=== PATIENT | male | born 1955 | race Caucasian/White ===

== ENCOUNTER → 2017-08-30 | Outpatient (CLI) | payer OTHER | END | disposition home or self-care (01) | LOC: BARWHC3 13:50 | PROVIDERS: ATTEND Surgery | DX: Z53.9 Procedure and treatment not carried out, unspecified reason (principal) ==

== ENCOUNTER 2017-11-01 06:28 | Day surgery (SDC) | payer OTHER ==
[2017-10-26 16:10] VITALS: BMI 38.0
[~2017-11-01 06:28] MED LIST: LACTATED RINGERS 1,000 ML IV SCH; LIDOCAINE 1% 20 ML VIAL (10MG/ML) FOR IV START INTRADERMA PRN
[2017-11-01 06:52] VITALS: RESP 18; TEMP 98.2
[2017-11-01] MEDS ORDERED: LACTATED RINGERS 1,000 ML IV ONE ×2 (06:59)
[2017-11-01 07:00] LABS: Glucose,Whole Blood 111 mg/dL (75-99)
[2017-11-01] MEDS ORDERED: PROPOFOL 10 MG/ML 20 ML VIAL IV ONE (07:52)
--- NOTE | 2017-11-01 08:02 | P.GSHP ---
History of Present Illness H&P Date: 11/01/17 Chief Complaint: GERD This is a 62-year-old male who presents for EGD. Patient has issues with GERD. Past Medical History Past Medical History: Diabetes Mellitus, GERD/Reflux Additional Past Medical History / Comment(s): Type 2 DM, *patient frequently experiences a feeling like a lump in his esophagus after eating,freq cough, voice changes History of Any Multi-Drug Resistant Organisms: None Reported Past Surgical History: Bariatric Surgery, Cholecystectomy, Tonsillectomy Additional Past Surgical History / Comment(s): lap band placed 2012 Past Anesthesia/Blood Transfusion Reactions: No Reported Reaction Additional Past Anesthesia/Blood Transfusion Reaction / Comment(s): No blood transfusions to date Smoking Status: Former smoker - Past Family History Mother Family Medical History: No Reported History Medications and Allergies Home Medications Medication Instructions Recorded Confirmed Type Aspirin 81 mg PO DAILY 09/23/17 10/26/17 History Citalopram Hydrobromide [CeleXA] 40 mg PO QAM 09/23/17 10/26/17 History Fexofenadine HCl [Lori Allergy] 180 mg PO DAILY 09/23/17 10/26/17 History Lisinopril [Zestril] 2.5 mg PO QAM 09/23/17 10/26/17 History Multivitamin [Men's Multi-Vitamin] 1 each PO DAILY 09/23/17 10/26/17 History Omeprazole [PriLOSEC] 40 mg PO DAILY 09/23/17 10/26/17 History Simvastatin [Zocor] 40 mg PO HS 09/23/17 10/26/17 History metFORMIN HCL [Glucophage] 1,000 mg PO BID 09/23/17 10/26/17 History ALPRAZolam [Xanax] 0.25 mg PO BID 10/26/17 10/26/17 History Fluticasone Nasal [place] [Flonase 2 spr EA NOSTRIL DAILY PRN 10/26/17 10/26/17 History Nasal [place]] Ibuprofen [Motrin] 200 mg PO Q6HR PRN 10/26/17 10/26/17 History Allergies Allergy/AdvReac Type Severity Reaction Status Date / Time Penicillins Allergy Severe Anaphylaxis Verified 10/26/17 15:57 Sulfa (Sulfonamide Allergy Rash/Hives Verified 11/01/17 06:54 Antibiotics) Surgical - Exam Vital Signs Temp Pulse Resp BP Pulse Ox 98.2 F 67 18 155/79 98 11/01/17 06:50 11/01/17 06:50 11/01/17 06:50 11/01/17 06:50 11/01/17 06:50 Results - Labs Abnormal Lab Results - Last 24 Hours (Table) 11/01/17 Range/Units 06:57 POC Glucose (mg/dL) 111 H (75-99) mg/dL Assessment and Plan Assessment: GERD. We'll perform EGD.
--- NOTE | 2017-11-01 08:10 | P.OP ---
Date of Procedure: 11/01/17 Preoperative Diagnosis: GERD Postoperative Diagnosis: Antral gastritis Procedure(s) Performed: EGD Anesthesia: MAC Surgeon: Rome Walker Pathology: other (Antrum) Condition: stable Disposition: PACU Description of Procedure: The patient's placed on the endoscopy table in the lateral position. He received IV sedation. The gastroscope placed oropharynx passed in the esophagus and into the stomach. Scope was placed through the pylorus. The first second portion of the duodenum appeared normal. Scope was then brought back the antrum this was mildly inflamed. A biopsies performed. Scope was then retroflexed and the remainder of the stomach appeared normal. There is no evidence of inflammation and the remainder stomach. It appears patient a previous LAP-BAND device. The GE junction was at 40 cm. The distal esophagus appeared normal. The proximal esophagusAppeared Normal. Scope was withdrawn for patient.
[2017-11-01 08:38] VITALS: BP 151/79; PULSE 58
== END 2017-11-01 08:49 | disposition home or self-care (01) ==
LOC: ORWHC2ENDO 06:28
PROVIDERS: ATTEND Surgery
DX: K29.50 Unspecified chronic gastritis without bleeding (principal); K21.9 Gastro-esophageal reflux disease without esophagitis; E11.9 Type 2 diabetes mellitus without complications; I10 Essential (primary) hypertension; E78.5 Hyperlipidemia, unspecified; Z98.84 Bariatric surgery status; Z90.49 Acquired absence of other specified parts of digestive tract; Z79.84 Long term (current) use of oral hypoglycemic drugs; Z79.82 Long term (current) use of aspirin; Z79.51 Long term (current) use of inhaled steroids; Z79.899 Other long term (current) drug therapy; Z88.0 Allergy status to penicillin; Z88.2 Allergy status to sulfonamides; Z87.891 Personal history of nicotine dependence
CPT/HCPCS: 88305; 43239; J2704

== ENCOUNTER 2017-12-23 18:07 | Emergency (ER) | payer OTHER ==
[2017-12-23] MEDS ORDERED: MECLIZINE 12.5 MG TAB PO STA (18:30)
--- NOTE | 2017-12-23 18:37 | ED ---
Dizziness HPI - General Chief Complaint: Dizziness Stated Complaint: dizzy, nausea Time Seen by Provider: 12/23/17 18:23 Source: patient, RN notes reviewed Mode of arrival: wheelchair Limitations: no limitations - History of Present Illness Initial Comments: This is a 62-year-old male who presents to the emergency department with chief complaint of dizziness. Patient states one hour ago he was lying in bed and his called to him. He states that he went to get up out of bed and had sudden onset of dizziness. Patient thought that he had gotten up too quickly but then as he tried to walk he began stumbling. He states that he felt like the room was spinning and felt like he was going to pass out. He also reports feeling nauseous. He denies any headache, weakness or vision changes. He denies any recent illnesses or infections. He denies chest pain or shortness of breath, abdominal pain. Patient states that he continues to feel dizzy. Symptoms are relieved by lying flat and worsened by sitting forward, standing up and making quick movements of the head. - Related Data Home Medications Medication Instructions Recorded Confirmed Citalopram Hydrobromide [CeleXA] 40 mg PO DAILY 09/23/17 12/23/17 Fexofenadine HCl [Lori Allergy] 180 mg PO DAILY 09/23/17 12/23/17 Lisinopril [Zestril] 2.5 mg PO DAILY 09/23/17 12/23/17 Multivitamin [Men's Multi-Vitamin] 1 tab PO DAILY 09/23/17 12/23/17 Omeprazole [PriLOSEC] 40 mg PO DAILY 09/23/17 12/23/17 Simvastatin [Zocor] 40 mg PO HS 09/23/17 12/23/17 metFORMIN HCL [Glucophage] 1,000 mg PO BID 09/23/17 12/23/17 ALPRAZolam [Xanax] 0.25 mg PO BID 10/26/17 12/23/17 Fluticasone Nasal [place] [Flonase 2 spr EA NOSTRIL DAILY PRN 10/26/17 12/23/17 Nasal [place]] Aspirin EC [Ecotrin Low Dose] 81 mg PO DAILY 12/23/17 12/23/17 Montelukast [Singulair] 10 mg PO DAILY 12/23/17 12/23/17 glipiZIDE [Glucotrol] 10 mg PO AC-BID 12/23/17 12/23/17 Previous Rx's Medication Instructions Recorded Meclizine [Antivert] 25 mg PO BID PRN #20 tab 12/23/17 Allergies Allergy/AdvReac Type Severity Reaction Status Date / Time Penicillins Allergy Severe Anaphylaxis Verified 12/23/17 18:44 Sulfa (Sulfonamide Allergy Rash/Hives Verified 12/23/17 18:44 Antibiotics) Review of Systems ROS Statement: Those systems with pertinent positive or pertinent negative responses have been documented in the HPI. ROS Other: All systems not noted in ROS Statement are negative. Past Medical History Past Medical History: Diabetes Mellitus, GERD/Reflux Additional Past Medical History / Comment(s): Type 2 DM, *patient frequently experiences a feeling like a lump in his esophagus after eating,freq cough, voice changes History of Any Multi-Drug Resistant Organisms: None Reported Past Surgical History: Bariatric Surgery, Cholecystectomy, Tonsillectomy Additional Past Surgical History / Comment(s): lap band placed 2012 Past Anesthesia/Blood Transfusion Reactions: No Reported Reaction Additional Past Anesthesia/Blood Transfusion Reaction / Comment(s): No blood transfusions to date Past Psychological History: Depression Smoking Status: Former smoker Past Alcohol Use History: None Reported Past Drug Use History: None Reported - Past Family History Mother Family Medical History: No Reported History General Exam - General Exam Comments Initial Comments: General: Awake and alert, well-developed; in no apparent distress. HEENT: Head atraumatic, normocephalic. Pupils are equal, round and reactive to light. Extraocular movements intact. No nystagmus noted. Oropharynx moist without erythema or exudate. Bilateral TMs pearly without effusion. Neck: Supple. Normal ROM. Cardiovascular: Regular rate and rhythm. No murmurs, rubs or gallops. Chest symmetrical. Respiratory: Lungs clear to auscultation bilaterally. No wheezes, rales or rhonchi. Normal respiratory effort with no use of accessory muscles. Abdomen: Soft, non-tender, non-distended. No rigidity, rebound or guarding. Musculoskeletal: Normal ROM, no tenderness, strength 5/5 bilateral upper and lower extremities. Skin: [place], warm and dry without rashes or lesions. Neurological: Alert and oriented x3. CN II-XII grossly intact. Speech is fluent and answers are appropriate. No focal neuro deficits. Heel to alanis testing normal. Psychiatric: Normal mood and affect. No overt signs of depression or anxiety noted. Limitations: no limitations Course Vital Signs 12/23/17 12/23/17 12/23/17 18:08 20:06 20:21 Temperature 98.0 F 97 F L Pulse Rate 67 64 Pulse Rate [ 64 Pulse Oximetery ] Respiratory 20 16 Rate Blood Pressure 146/72 158/73 Blood Pressure 147/74 [Right Arm Sitting] Blood Pressure 154/77 [Right Arm Standing] Blood Pressure 147/79 [Right Arm Supine] O2 Sat by Pulse 99 97 Oximetry EKG Findings - EKG Comments: EKG Findings:: 19:00:30. Normal sinus rhythm. Normal ECG. Ventricular rate 66 bpm, [place] interval 206, QRS duration 78, QT/QTC 396/415 Medical Decision Making - Medical Decision Making This is a 62-year-old male who presents to the emergency department with chief complaint of dizziness. Patient reports sudden onset of dizziness and feeling like the room is spinning. Symptoms made worse with quick movements of the head and relieved with closing eyes and remaining still. No focal neuro deficits on exam. Computed tomography scan of the brain is obtained which revealed no acute abnormalities. CBC and CMP are unremarkable. Patient was given Antivert in the emergency department and he states that his symptoms have improved. Patient is likely suffering from vertigo. He will be started on Antivert. Vital signs are stable and he is in no acute distress. He will be discharged home at this time. He is in agreement and voices understanding. All questions were answered. - Lab Data Result diagrams: 12/23/17 18:54 12/23/17 18:54 Lab Results 12/23/17 12/23/17 12/23/17 Range/Units 18:54 18:54 18:54 WBC 4.7 (3.8-10.6) k/uL RBC 4.21 L (4.30-5.90) m/uL Hgb 12.3 L (13.0-17.5) gm/dL Hct 36.2 L (39.0-53.0) % MCV 86.0 (80.0-100.0) fL MCH 29.2 (25.0-35.0) pg MCHC 34.0 (31.0-37.0) g/dL RDW 13.5 (11.5-15.5) % Plt Count 167 (150-450) k/uL Neutrophils % 53 % Lymphocytes % 29 % Monocytes % 8 % Eosinophils % 7 % Basophils % 1 % Neutrophils # 2.5 (1.3-7.7) k/uL Lymphocytes # 1.3 (1.0-4.8) k/uL Monocytes # 0.4 (0-1.0) k/uL Eosinophils # 0.3 (0-0.7) k/uL Basophils # 0.0 (0-0.2) k/uL Sodium 138 (137-145) mmol/L Potassium 4.5 (3.5-5.1) mmol/L Chloride 104 (98-107) mmol/L Carbon Dioxide 28 (22-30) mmol/L Anion Gap 6 mmol/L BUN 17 (9-20) mg/dL Creatinine 0.84 (0.66-1.25) mg/dL Est GFR (CKD-EPI)AfAm >90 (>60 ml/min/1.73 sqM) Est GFR (CKD-EPI)NonAf >90 (>60 ml/min/1.73 sqM) Glucose 241 H (74-99) mg/dL Calcium 8.7 (8.4-10.2) mg/dL Total Bilirubin 0.5 (0.2-1.3) mg/dL AST 27 (17-59) U/L ALT 26 (21-72) U/L Alkaline Phosphatase 39 (38-126) U/L Troponin I <0.012 (0.000-0.034) ng/mL Total Protein 5.7 L (6.3-8.2) g/dL Albumin 3.3 L (3.5-5.0) g/dL - Radiology Data Radiology results: report reviewed CT brain without contrast impression: Mild atrophy. No acute intracranial abnormality. Mild sinusitis. Disposition Clinical Impression: Vertigo Disposition: HOME SELF-CARE Condition: Good Instructions: Vertigo (ED), Dizziness (ED) Additional Instructions: Please take medications as prescribed. Please follow up with primary care provider within 1-2 days. Return to emergency department if symptoms should worsen or any concerns arise. Prescriptions: Meclizine [Antivert] 25 mg PO BID PRN #20 tab PRN Reason: Vertigo Is patient prescribed a controlled substance at d/c from ED?: No Referrals: Eric Muñiz MD [Primary Care Provider] - 1-2 days Time of Disposition: 20:50
[2017-12-23 19:32] LABS: Basophils % (A) 1 %; Eosinophils # (A) 0.3 k/uL (0-0.7); Eosinophils % (A) 7 %; HCT 36.2 % (39.0-53.0); HGB 12.3 gm/dL (13.0-17.5); Lymphocytes # (A) 1.3 k/uL (1.0-4.8); Lymphocytes % (A) 29 %; MCH 29.2 pg (25.0-35.0); Monocytes # (A) 0.4 k/uL (0-1.0); Monocytes % (A) 8 %; Neutrophils # (A) 2.5 k/uL (1.3-7.7); Neutrophils % (A) 53 %; Platelet Count 167 k/uL (150-450); RBC 4.21 m/uL (4.30-5.90); RDW 13.5 % (11.5-15.5); WBC 4.7 k/uL (3.8-10.6)
--- NOTE | 2017-12-23 19:32 | CT ---
EXAMINATION TYPE: CT brain wo con DATE OF EXAM: 12/23/2017 COMPARISON: None HISTORY: Dizziness. CT DLP: 1070.8 mGycm Automated exposure control for dose reduction was used. FINDINGS: Ventricles of normal size. There is no mass effect nor midline shift. There is no sign of intracrania l hemorrhage. The calvarium is intact. There is mucosal thickening in the ethmoid air cells. IMPRESSION: MILD ATROPHY. NO ACUTE INTRACRANIAL ABNORMALITY. MILD SINUSITIS.
[2017-12-23 19:50] LABS: ALT 26 U/L (21-72); AST 27 U/L (17-59); Albumin 3.3 g/dL (3.5-5.0); Alkaline Phosphatase 39 U/L (38-126); Anion Gap 6 mmol/L; Blood Urea Nitrogen 17 mg/dL (9-20); Calcium 8.7 mg/dL (8.4-10.2); Carbon Dioxide 28 mmol/L (22-30); Chloride 104 mmol/L (98-107); Glucose 241 mg/dL (74-99); Potassium 4.5 mmol/L (3.5-5.1); Sodium 138 mmol/L (137-145); Total Bilirubin 0.5 mg/dL (0.2-1.3); Total Protein 5.7 g/dL (6.3-8.2)
[2017-12-23 20:21] VITALS: PULSE 64; RESP 16; TEMP 97
[2017-12-23 20:23] VITALS: BP 147/79
== END 2017-12-23 21:04 | disposition home or self-care (01) ==
LOC: EC 18:07
DX: R42 Dizziness and giddiness (principal); R11.0 Nausea; E11.9 Type 2 diabetes mellitus without complications; K21.9 Gastro-esophageal reflux disease without esophagitis; F32.9 Major depressive disorder, single episode, unspecified; Z87.891 Personal history of nicotine dependence; Z79.82 Long term (current) use of aspirin; Z79.84 Long term (current) use of oral hypoglycemic drugs; Z79.899 Other long term (current) drug therapy; Z88.0 Allergy status to penicillin; Z88.2 Allergy status to sulfonamides
CPT/HCPCS: 36415; 70450; 80053; 84484; 85025; 93005; 99284

== ENCOUNTER 2018-11-20 06:24 | Emergency (ER) | payer OTHER ==
[2018-11-20 06:39] VITALS: BP 145/79; PULSE 74; RESP 17; TEMP 98.4
[2018-11-20] MEDS ORDERED: methylPREDNISolone SOD SUCCI 125 MG/2 ML VIAL IM ONE (07:01)
[2018-11-20] MEDS ORDERED: KETOROLAC 60 MG/2 ML VIAL IM STA (07:01)
[2018-11-20] MEDS ORDERED: ORPHENADRINE 30 MG/ML 2 ML VIAL IM STA (07:01)
[2018-11-20] MEDS ORDERED: ACET/COD 300 MG/30 MG STARTER PACK 6 TAB BTL PO STA (07:02)
--- NOTE | 2018-11-20 07:06 | ED ---
Back Pain HPI - General Chief Complaint: Back Pain/Injury Stated Complaint: Back pain- WC Time Seen by Provider: 11/20/18 06:46 Source: patient, RN notes reviewed, old records reviewed Limitations: no limitations - History of Present Illness Initial Comments: This patient's a 63-year-old male presents emergency department today for evaluation with complaints of lower back pain with radiation down the left leg. Patient reports that on the Patient was lifting pop bottles and crates and he felt a "pop in his back". Patient reports onset times having the numbness to the left leg as well as pain worse with certain movements. Patient reports that he's had a history of sciatic problems in the past but not quite some time. Patient states that his ever had any known back injuries. Patient reports that he has been taking Motrin for pain.Patient denies any recent fever, chills, shortness of breath, chest pain, abdominal pain, nausea vomiting, numbness or tingling, dysuria or hematuria, constipation or diarrhea, headaches or visual changes, or any other current symptoms - Related Data Home Medications Medication Instructions Recorded Confirmed Citalopram Hydrobromide [CeleXA] 40 mg PO DAILY 09/23/17 11/20/18 Fexofenadine HCl [[place] Allergy] 180 mg PO DAILY 09/23/17 11/20/18 Lisinopril [Zestril] 2.5 mg PO DAILY 09/23/17 11/20/18 Multivitamin [Men's Multi-Vitamin] 1 tab PO DAILY 09/23/17 11/20/18 Omeprazole [PriLOSEC] 40 mg PO DAILY 09/23/17 11/20/18 Simvastatin [Zocor] 40 mg PO HS 09/23/17 11/20/18 metFORMIN HCL [Glucophage] 1,000 mg PO BID 09/23/17 11/20/18 ALPRAZolam [Xanax] 0.25 mg PO BID 10/26/17 11/20/18 Fluticasone Nasal [place] [Flonase 2 spr EA NOSTRIL DAILY PRN 10/26/17 11/20/18 Nasal [place]] Aspirin EC [Ecotrin Low Dose] 81 mg PO DAILY 12/23/17 11/20/18 Montelukast [Singulair] 10 mg PO DAILY 12/23/17 11/20/18 glipiZIDE [Glucotrol] 10 mg PO AC-BID 12/23/17 11/20/18 Previous Rx's Medication Instructions Recorded Meclizine [Antivert] 25 mg PO BID PRN #20 tab 12/23/17 Cyclobenzaprine [Flexeril] 10 mg PO TID #12 tab 11/20/18 Dexamethasone 0.75 mg PO DAILY #12 tab 11/20/18 traMADol HCl [Ultram] 50 mg PO Q6HR PRN 3 Days #12 tab 11/20/18 Allergies Allergy/AdvReac Type Severity Reaction Status Date / Time Penicillins Allergy Severe Anaphylaxis Verified 11/20/18 08:01 Sulfa (Sulfonamide Allergy Rash/Hives Verified 11/20/18 08:01 Antibiotics) Review of Systems ROS Statement: Those systems with pertinent positive or pertinent negative responses have been documented in the HPI. ROS Other: All systems not noted in ROS Statement are negative. Past Medical History Past Medical History: Diabetes Mellitus, GERD/Reflux Additional Past Medical History / Comment(s): Type 2 DM, *patient frequently experiences a feeling like a lump in his esophagus after eating,freq cough,voice changes, History of Any Multi-Drug Resistant Organisms: None Reported Past Surgical History: Bariatric Surgery, Cholecystectomy, Tonsillectomy Additional Past Surgical History / Comment(s): lap band placed 2012, Past Anesthesia/Blood Transfusion Reactions: No Reported Reaction Additional Past Anesthesia/Blood Transfusion Reaction / Comment(s): No blood transfusions to date Past Psychological History: Depression Smoking Status: Former smoker Past Alcohol Use History: None Reported Past Drug Use History: None Reported - Past Family History Mother Family Medical History: No Reported History General Exam - General Exam Comments Initial Comments: This is a 63-year-old male. Alert and oriented 3. Patient appears in no acute distress. Limitations: no limitations General appearance: alert, in no apparent distress Head exam: Present: atraumatic, normocephalic, normal inspection Eye exam: Present: normal appearance, PERRL, EOMI. Absent: scleral icterus, conjunctival injection, periorbital swelling ENT exam: Present: normal exam, mucous membranes moist Neck exam: Present: normal inspection. Absent: tenderness, meningismus, lymphadenopathy Respiratory exam: Present: normal lung sounds bilaterally. Absent: respiratory distress, wheezes, rales, rhonchi, stridor Cardiovascular Exam: Present: regular rate, normal rhythm, normal heart sounds. Absent: systolic murmur, diastolic murmur, rubs, gallop, clicks GI/Abdominal exam: Present: soft, normal bowel sounds. Absent: distended, tenderness, guarding, rebound, rigid Extremities exam: Present: normal inspection, full ROM, normal capillary refill, other (Patient has tenderness over the left sciatic notch. Dorsalis pulse and posterior tibial pulses are 2+ bilaterally.). Absent: tenderness, pedal edema, joint swelling, calf tenderness Back exam: Present: normal inspection, vertebral tenderness (lumbar) Expanded Back exam: Sciatic Notch Tenderness: Left, Positive Straight Leg Raise: Left Neurological exam: Present: alert, oriented X3, CN II-XII intact Psychiatric exam: Present: normal affect, normal mood Skin exam: Present: warm, dry, intact, normal color. Absent: rash Course Vital Signs 11/20/18 06:36 Temperature 98.4 F Pulse Rate 74 Respiratory 17 Rate Blood Pressure 145/79 O2 Sat by Pulse 99 Oximetry Medical Decision Making - Medical Decision Making 63-year-old male presents with lumbar back pain and radiation down the left leg. Symptoms started while he was lifting a carton of soda at work. Patient reports he felt a pop in his back. Time Patient was given IM medications, Solu- Medrol, Norflex and Toradol. X-rays reviewed negative for any acute process. No signs of fracture. I discussed with Patient they should alternate between heat and ice for his back. . At this time patient's pain is improved. His gastric return parameters and appropriate follow-up with primary care physician KARIE and possible orthostatic specialist. - Radiology Data Radiology results: report reviewed Lumbar spine shows satisfactory alignment evidence of acute fracture dislocation seen. Vertebral body height remain normal. Moderate multilevel disc space narrowing and multilevel anterior and lateral [place] redemonstrated. Multilevel spinous process hypertrophy is seen. No significant change from 2012 study. Disposition Clinical Impression: Sciatica Disposition: HOME SELF-CARE Condition: Good Instructions (If sedation given, give patient instructions): Acute Low Back Pain (ED), Sciatica (ED) Additional Instructions: Patient advised to follow-up with primary care physician. Take medications as prescribed. Return to emergency department if any alarming signs or symptoms occur. Patient is advised to alternate between heat and ice to the lower back. Prescriptions: Dexamethasone 0.75 mg PO DAILY #12 tab Cyclobenzaprine [Flexeril] 10 mg PO TID #12 tab traMADol HCl [Ultram] 50 mg PO Q6HR PRN 3 Days #12 tab PRN Reason: Pain Is patient prescribed a controlled substance at d/c from ED?: No Referrals: Eric Muñiz MD [Primary Care Provider] - 1-2 days Time of Disposition: 08:28
--- NOTE | 2018-11-20 08:19 | XR ---
EXAMINATION TYPE: XR lumbar spine 2 or 3V DATE OF EXAM: 11/20/2018 CLINICAL HISTORY: Back pain since Wednesday. TECHNIQUE: Frontal and lateral images of the lumbar spine are obtained. COMPARISON: Prior x-ray May 21, 2011 FINDINGS: There are 5 lumbar type vertebral bodies redemonstrated. The lumbar spine shows satisfact ory alignment without evidence of acute fracture or dislocation. Vertebral body heights remain within normal limits. [id number] multilevel disc space narrowing with mild to moderate multilevel ant erior and lateral spurring is redemonstrated. Multilevel spinous process hypertrophy is seen. There i s partial visualization of lap band similar to prior. IMPRESSION: As above. No significant change from 2012 study.
== END 2018-11-20 08:55 | disposition home or self-care (01) ==
LOC: EC 06:24
DX: M54.42 Lumbago with sciatica, left side (principal); E11.9 Type 2 diabetes mellitus without complications; K21.9 Gastro-esophageal reflux disease without esophagitis; F32.9 Major depressive disorder, single episode, unspecified; Z79.82 Long term (current) use of aspirin; Z79.84 Long term (current) use of oral hypoglycemic drugs; Z79.899 Other long term (current) drug therapy; Z88.0 Allergy status to penicillin; Z88.2 Allergy status to sulfonamides; Z98.84 Bariatric surgery status
CPT/HCPCS: 72100; 99284; 96372 ×3; J2360; J2930; J1885

== ENCOUNTER 2020-01-03 09:39 | Emergency (ER) | payer OTHER, MEDICARE ==
[2020-01-03] MEDS ORDERED: PANTOPRAZOLE 40 MG/10 ML VIAL IVP STA (10:06)
[2020-01-03] MEDS ORDERED: SODIUM CHLORIDE 0.9% 1,000 ML IV STA (10:06)
[2020-01-03] MEDS ORDERED: ONDANSETRON 4 MG/2 ML VIAL IVP STA (10:06)
[2020-01-03 10:54] LABS: Basophils # (A) 0.1 k/uL (0-0.2); Basophils % (A) 1 %; Eosinophils # (A) 0.3 k/uL (0-0.7); Eosinophils % (A) 5 %; HCT 37.4 % (39.0-53.0); HGB 12.8 gm/dL (13.0-17.5); Lymphocytes % (A) 31 %; MCH 28.4 pg (25.0-35.0); MCHC 34.3 g/dL (31.0-37.0); MCV 82.8 fL (80.0-100.0); Mean Platelet Volume 8.1; Monocytes # (A) 0.5 k/uL (0-1.0); Monocytes % (A) 7 %; Neutrophils # (A) 3.3 k/uL (1.3-7.7); Neutrophils % (A) 52 %; Platelet Count 210 k/uL (150-450); RBC 4.51 m/uL (4.30-5.90); RDW 14.8 % (11.5-15.5); WBC 6.3 k/uL (3.8-10.6)
[2020-01-03 10:57] LABS: Appearance,Urine Clear (Clear); Bilirubin,Urine Negative (Negative); Blood,Urine Negative (Negative); Color,Urine Yellow; Glucose,Urine (UA) Negative (Negative); Ketones,Urine Trace (Negative); Leukocyte Esterase,Urine Negative (Negative); Nitrite,Urine Negative (Negative); Protein,Urine Negative (Negative); Specific Gravity,Urine 1.024 (1.001-1.035)
[2020-01-03 11:13] LABS: Albumin 4.2 g/dL (3.5-5.0); Calcium 9.2 mg/dL (8.4-10.2); Potassium 4.5 mmol/L (3.5-5.1); Total Bilirubin 0.7 mg/dL (0.2-1.3); Total Protein 6.7 g/dL (6.3-8.2)
[2020-01-03] MEDS ORDERED: MAG HYDROX/AL HYDROX/SIMETH 30 ML, HYOSCYAMINE ELIXIR 10 ML, LIDOCAINE VISCOUS 2% 10 ML PO STA ×3 (11:54)
--- NOTE | 2020-01-03 12:03 | ED ---
Abdominal Pain HPI <David Eden - Last Filed: 01/03/20 13:24> - General Source: patient, family Mode of arrival: ambulatory Limitations: no limitations <Vince Leahy - Last Filed: 01/03/20 13:52> - General Chief Complaint: Abdominal Pain Stated Complaint: trouble swallowing Time Seen by Provider: 01/03/20 10:06 - History of Present Illness Initial Comments: Patient is a 64-year-old male with history of GERD presented to the emergency department with a chief complaint of abdominal pain. Patient states he had a lap band performed several years ago by . States she's also been dealing with heart problems and has been having complaints about epigastric abdominal pain. States this is benign when issue for many years, however has increased over the last week. Patient reports it feels like a lump in the epigastric region. He does report having 2 episodes of nausea and vomiting today after he attempted eating. States he ate sausage last night before going to bed. He denies any night sweats or chills. Denies any shortness of breath or chest pain. (Vince Leahy) - Related Data Home Medications Medication Instructions Recorded Confirmed Citalopram Hydrobromide [CeleXA] 40 mg PO DAILY 09/23/17 01/03/20 Fexofenadine HCl [Lori Allergy] 180 mg PO DAILY 09/23/17 01/03/20 Multivitamin [Men's Multi-Vitamin] 1 tab PO DAILY 09/23/17 01/03/20 Omeprazole [PriLOSEC] 40 mg PO DAILY 09/23/17 01/03/20 Simvastatin [Zocor] 40 mg PO HS 09/23/17 01/03/20 lisinopriL [Zestril] 2.5 mg PO DAILY 09/23/17 01/03/20 metFORMIN HCL [Glucophage] 1,000 mg PO BID 09/23/17 01/03/20 ALPRAZolam [Xanax] 0.25 mg PO BID 10/26/17 01/03/20 Fluticasone Nasal [place] [Flonase 2 spr EA NOSTRIL DAILY PRN 10/26/17 01/03/20 Nasal [place]] Aspirin EC [Ecotrin Low Dose] 81 mg PO DAILY 12/23/17 01/03/20 Calcium Carbonate/Vitamin D3 1 tab PO DAILY 01/03/20 01/03/20 [Calcium 500 mg-Vit D3 5 Mcg (200 Unit)] Famotidine 40 mg PO DAILY 01/03/20 01/03/20 Meclizine [Antivert] 12.5 mg PO TID PRN 01/03/20 01/03/20 Semaglutide [Ozempic] 0.25 mg SQ IRVIN 01/03/20 01/03/20 glipiZIDE [Glucotrol] 5 mg PO BID 01/03/20 01/03/20 Allergies Allergy/AdvReac Type Severity Reaction Status Date / Time Penicillins Allergy Severe Anaphylaxis Verified 01/03/20 11:43 Sulfa (Sulfonamide Allergy Rash/Hives Verified 01/03/20 11:43 Antibiotics) Review of Systems ROS Other: All systems not noted in ROS Statement are negative. <David Eden - Last Filed: 01/03/20 13:24> ROS Other: All systems not noted in ROS Statement are negative. <Vince Leahy - Last Filed: 01/03/20 13:52> ROS Statement: Those systems with pertinent positive or pertinent negative responses have been documented in the HPI. Past Medical History Past Medical History: Diabetes Mellitus, GERD/Reflux Additional Past Medical History / Comment(s): Type 2 DM, *patient frequently experiences a feeling like a lump in his esophagus after eating,freq cough,voice changes, History of Any Multi-Drug Resistant Organisms: None Reported Past Surgical History: Bariatric Surgery, Cholecystectomy, Tonsillectomy Additional Past Surgical History / Comment(s): lap band placed 2012, Past Anesthesia/Blood Transfusion Reactions: No Reported Reaction Additional Past Anesthesia/Blood Transfusion Reaction / Comment(s): No blood transfusions to date Past Psychological History: Depression Smoking Status: Never smoker Past Alcohol Use History: None Reported Past Drug Use History: None Reported - Past Family History Mother Family Medical History: No Reported History <Vince Leahy - Last Filed: 01/03/20 13:52> General Exam Limitations: no limitations General appearance: alert, in no apparent distress, obese Head exam: Present: atraumatic, normocephalic, normal inspection Eye exam: Present: normal appearance, PERRL, EOMI Pupils: Present: normal accommodation ENT exam: Present: normal exam, normal oropharynx, mucous membranes moist, TM's normal bilaterally, normal external ear exam Neck exam: Present: normal inspection, full ROM. Absent: tenderness Respiratory exam: Present: normal lung sounds bilaterally. Absent: respiratory distress, wheezes, rales Cardiovascular Exam: Present: regular rate, normal rhythm, normal heart sounds GI/Abdominal exam: Present: soft, tenderness (Mild epigastric tenderness). Absent: distended, guarding, rebound Extremities exam: Present: normal inspection, full ROM, normal capillary refill. Absent: tenderness Back exam: Present: normal inspection, full ROM. Absent: tenderness, CVA tenderness (R), CVA tenderness (L) Neurological exam: Present: alert, oriented X3 Psychiatric exam: Present: normal affect, normal mood Skin exam: Present: warm, dry, intact, normal color <Vince Leahy - Last Filed: 01/03/20 13:52> Course <Vince Leahy - Last Filed: 01/03/20 13:52> Vital Signs 01/03/20 01/03/20 09:44 12:14 Temperature 98.3 F Pulse Rate 71 65 Respiratory 18 15 Rate Blood Pressure 125/69 137/74 O2 Sat by Pulse 100 98 Oximetry - Reevaluation(s) Reevaluation #1: 01/03/20 12:03 Medical records reviewed (Vince Leahy) Medical Decision Making - Lab Data Result diagrams: 01/03/20 10:35 01/03/20 10:35 <David Eden - Last Filed: 01/03/20 13:24> - Lab Data Result diagrams: 01/03/20 10:35 01/03/20 10:35 <Vince Leahy - Last Filed: 01/03/20 13:52> - Medical Decision Making Patient reevaluated and reexamined by myself, Dr. Eden. Patient is resting comfortably in bed. Patient symptom free at this time. Abdomen soft and nontender. I do agree with PAs findings. This includes diagnostic interpretation and treatment and. Case was also discussed with Dr. Walker who states he can follow up with patient Wednesday in the bariatric clinic. He states the patient needs to come sooner he can follow-up in surgical clinic tomorrow. (David Eden) Patient is a 64-year-old male with history of GERD and let them presenting to emergency Department with a chief complaint of abdominal pain. Physical examination, patient has epigastric abdominal pain. Patient was able to tolerate fluids and IV. He was also given a GI cocktail with with improvement in symptoms. Patient was tolerating fluids orally without any difficulties. CT of abdomen and pelvis reveals esophageal thickening with possible food or liquid buildup in the distal esophagus. was consulted who suggested follow-up with him in the outpatient center. Strict return parameters were thoroughly discussed the patient is understanding and agreeable. Case discussed with physician. (Vince Leahy) - Lab Data Lab Results 01/03/20 01/03/20 01/03/20 Range/Units 10:35 10:35 10:35 WBC 6.3 (3.8-10.6) k/uL RBC 4.51 (4.30-5.90) m/uL Hgb 12.8 L (13.0-17.5) gm/dL Hct 37.4 L (39.0-53.0) % MCV 82.8 (80.0-100.0) fL MCH 28.4 (25.0-35.0) pg MCHC 34.3 (31.0-37.0) g/dL RDW 14.8 (11.5-15.5) % Plt Count 210 (150-450) k/uL Neutrophils % 52 % Lymphocytes % 31 % Monocytes % 7 % Eosinophils % 5 % Basophils % 1 % Neutrophils # 3.3 (1.3-7.7) k/uL Lymphocytes # 2.0 (1.0-4.8) k/uL Monocytes # 0.5 (0-1.0) k/uL Eosinophils # 0.3 (0-0.7) k/uL Basophils # 0.1 (0-0.2) k/uL Sodium 137 (137-145) mmol/L Potassium 4.5 (3.5-5.1) mmol/L Chloride 103 (98-107) mmol/L Carbon Dioxide 26 (22-30) mmol/L Anion Gap 8 mmol/L BUN 20 (9-20) mg/dL Creatinine 1.30 H (0.66-1.25) mg/dL Est GFR (CKD-EPI)AfAm 66 (>60 ml/min/1.73 sqM) Est GFR (CKD-EPI)NonAf 57 (>60 ml/min/1.73 sqM) Glucose 99 (74-99) mg/dL Calcium 9.2 (8.4-10.2) mg/dL Total Bilirubin 0.7 (0.2-1.3) mg/dL AST 32 (17-59) U/L ALT 32 (4-49) U/L Alkaline Phosphatase 53 (38-126) U/L Troponin I (0.000-0.034) ng/mL Total Protein 6.7 (6.3-8.2) g/dL Albumin 4.2 (3.5-5.0) g/dL Amylase 93 (30-110) U/L Lipase 146 (23-300) U/L Urine Color Yellow Urine Appearance Clear (Clear) Urine pH 6.0 (5.0-8.0) Ur Specific [place] 1.024 (1.001-1.035) Urine Protein Negative (Negative) Urine Glucose (UA) Negative (Negative) Urine Ketones Trace H (Negative) Urine Blood Negative (Negative) Urine Nitrite Negative (Negative) Urine Bilirubin Negative (Negative) Urine Urobilinogen 2.0 (<2.0) mg/dL Ur Leukocyte Esterase Negative (Negative) 01/03/20 Range/Units 10:35 WBC (3.8-10.6) k/uL RBC (4.30-5.90) m/uL Hgb (13.0-17.5) gm/dL Hct (39.0-53.0) % MCV (80.0-100.0) fL MCH (25.0-35.0) pg MCHC (31.0-37.0) g/dL RDW (11.5-15.5) % Plt Count (150-450) k/uL Neutrophils % % Lymphocytes % % Monocytes % % Eosinophils % % Basophils % % Neutrophils # (1.3-7.7) k/uL Lymphocytes # (1.0-4.8) k/uL Monocytes # (0-1.0) k/uL Eosinophils # (0-0.7) k/uL Basophils # (0-0.2) k/uL Sodium (137-145) mmol/L Potassium (3.5-5.1) mmol/L Chloride (98-107) mmol/L Carbon Dioxide (22-30) mmol/L Anion Gap mmol/L BUN (9-20) mg/dL Creatinine (0.66-1.25) mg/dL Est GFR (CKD-EPI)AfAm (>60 ml/min/1.73 sqM) Est GFR (CKD-EPI)NonAf (>60 ml/min/1.73 sqM) Glucose (74-99) mg/dL Calcium (8.4-10.2) mg/dL Total Bilirubin (0.2-1.3) mg/dL AST (17-59) U/L ALT (4-49) U/L Alkaline Phosphatase (38-126) U/L Troponin I <0.012 (0.000-0.034) ng/mL Total Protein (6.3-8.2) g/dL Albumin (3.5-5.0) g/dL Amylase (30-110) U/L Lipase (23-300) U/L Urine Color Urine Appearance (Clear) Urine pH (5.0-8.0) Ur Specific [place] (1.001-1.035) Urine Protein (Negative) Urine Glucose (UA) (Negative) Urine Ketones (Negative) Urine Blood (Negative) Urine Nitrite (Negative) Urine Bilirubin (Negative) Urine Urobilinogen (<2.0) mg/dL Ur Leukocyte Esterase (Negative) - EKG Data EKG Comments: Sinus rhythm with no ST or T-wave changes. Imitrex a rate 69, LA 200, QRS 70, QTc 428. (Vince Leahy) Disposition <David Eden - Last Filed: 01/03/20 13:24> Is patient prescribed a controlled substance at d/c from ED?: No Time of Disposition: 13:52 <Vince Leahy - Last Filed: 01/03/20 13:52> Clinical Impression: Abdominal pain, Nausea & vomiting Disposition: HOME SELF-CARE Condition: Stable Instructions (If sedation given, give patient instructions): Abdominal Pain (ED) Additional Instructions: Follow-up with . Return to emergency department if symptoms worsen. Referrals: Cassandra Cool MD [Primary Care Provider] - 1-2 days
--- NOTE | 2020-01-03 12:52 | CT ---
EXAMINATION TYPE: CT abdomen pelvis w con DATE OF EXAM: 01/03/2020 COMPARISON: None HISTORY: Epigastric pain CT DLP: 1879 mGycm Automated exposure control for dose reduction was used. TECHNIQUE: Helical acquisition of images from the lung bases through the pelvis have been completed. CONTRAST: Performed without Oral Contrast and with IV Contrast, patient injected with 80 mL of Isovue 300. FINDINGS: Patient is post lap band. There is thickening of the distal esophagus. Fluid is present wit hin the esophagus, there is an air-fluid level. LUNG BASES: No significant abnormality is appreciated. AORTA: No significant abnormality is appreciated. LIVER/GB: Liver shows low attenuation. There may be hepatic steatosis. Patient is post cholecystectom y. PANCREAS: No significant abnormality is seen. SPLEEN: No significant abnormality is seen. ADRENALS: No significant abnormality is seen. KIDNEYS: No significant abnormality is seen. REPRODUCTIVE ORGANS: No significant abnormality is seen BOWEL: Diverticular changes extensive within the sigmoid colon, appendix is normal. No evident bowel obstruction. FREE AIR: No Free Air visible. ASCITES: None visible. PELVIC ADENOPATHY: None visualized. RETROPERITONEAL ADENOPATHY: No Retroperitoneal Adenopathy visible. URINARY BLADDER: No significant abnormality is seen. OSSEOUS STRUCTURES: Degenerative disc change present in the visualized spine, there is a slight spin al curvature. Arthropathy noted within the hips, correlate to exclude femoral acetabular impingement. There is facet arthropathy. IMPRESSION: POST LAP BAND CHANGES. INDETERMINATE THICKENING OF THE DISTAL ESOPHAGUS, FLUID PRESENT WITHIN THE ESO PHAGUS, CORRELATE FOR RETAINED FOOD OR LIQUID, OBSTRUCTION
[2020-01-03 14:08] VITALS: BP 133/67; PULSE 58; RESP 18; TEMP 98.2
== END 2020-01-03 14:05 | disposition home or self-care (01) ==
LOC: EC 09:39
DX: R10.13 Epigastric pain (principal); R11.2 Nausea with vomiting, unspecified; R10.816 Epigastric abdominal tenderness; E11.9 Type 2 diabetes mellitus without complications; F32.9 Major depressive disorder, single episode, unspecified; K21.9 Gastro-esophageal reflux disease without esophagitis; Z79.84 Long term (current) use of oral hypoglycemic drugs; Z79.82 Long term (current) use of aspirin; Z79.899 Other long term (current) drug therapy; Z88.0 Allergy status to penicillin; Z88.2 Allergy status to sulfonamides; Z98.84 Bariatric surgery status; Z90.49 Acquired absence of other specified parts of digestive tract
CPT/HCPCS: 36415; 93005; 80053; 82150; 83690; 84484; 85025; 81003; 74177; 99284; 96374; 96375; 96361; J2405; C9113; Q9967

== ENCOUNTER 2020-01-11 07:04 | Day surgery (SDC) | payer MEDICARE, OTHER ==
[2020-01-08 16:15] VITALS: BMI 37.4
[~2020-01-11 07:04] MED LIST changes: -LIDOCAINE 1% 20 ML VIAL (10MG/ML) FOR IV START INTRADERMA PRN
[2020-01-11 07:26] VITALS: RESP 16; TEMP 97.2
[2020-01-11 07:27] LABS: Glucose,Whole Blood 160 mg/dL (75-99)
[2020-01-11] MEDS ORDERED: PROPOFOL 10 MG/ML 20 ML VIAL IV ONE (08:03)
--- NOTE | 2020-01-11 08:07 | P.GSHP ---
History of Present Illness H&P Date: 01/11/20 Chief Complaint: GERD, dysphagia This a 64-year-old male with a safer EGD. He's had issues with GERD and dysphagia. He was a safer EGD. His recent computed tomography scan shows evidence of thickening of the distal esophagus Past Medical History Past Medical History: Diabetes Mellitus, GERD/Reflux Additional Past Medical History / Comment(s): Type 2 DM, History of Any Multi-Drug Resistant Organisms: None Reported Past Surgical History: Bariatric Surgery, Cholecystectomy, Tonsillectomy Additional Past Surgical History / Comment(s): lap band placed 2012, Past Anesthesia/Blood Transfusion Reactions: No Reported Reaction Additional Past Anesthesia/Blood Transfusion Reaction / Comment(s): No blood transfusions to date Smoking Status: Former smoker - Past Family History Mother Family Medical History: No Reported History Medications and Allergies Home Medications Medication Instructions Recorded Confirmed Type Citalopram Hydrobromide [CeleXA] 40 mg PO DAILY 09/23/17 01/11/20 History Fexofenadine HCl [Lori Allergy] 180 mg PO DAILY 09/23/17 01/11/20 History Multivitamin [Men's Multi-Vitamin] 1 tab PO DAILY 09/23/17 01/08/20 History Omeprazole [PriLOSEC] 40 mg PO DAILY 09/23/17 01/11/20 History Simvastatin [Zocor] 40 mg PO HS 09/23/17 01/11/20 History lisinopriL [Zestril] 2.5 mg PO DAILY 09/23/17 01/11/20 History metFORMIN HCL [Glucophage] 1,000 mg PO BID 09/23/17 01/11/20 History ALPRAZolam [Xanax] 0.25 mg PO BID PRN 10/26/17 01/11/20 History Fluticasone Nasal [place] [Flonase 2 spr EA NOSTRIL DAILY PRN 10/26/17 01/11/20 History Nasal [place]] Aspirin EC [Ecotrin Low Dose] 81 mg PO DAILY 12/23/17 01/08/20 History Calcium Carbonate/Vitamin D3 1 tab PO DAILY 01/03/20 01/08/20 History [Calcium 500 mg-Vit D3 5 Mcg (200 Unit)] Famotidine 40 mg PO DAILY 01/03/20 01/11/20 History Meclizine [Antivert] 12.5 mg PO TID PRN 01/03/20 01/11/20 History Semaglutide [Ozempic] 0.25 mg SQ IRVIN 01/03/20 01/11/20 History glipiZIDE [Glucotrol] 5 mg PO BID 01/03/20 01/11/20 History Allergies Allergy/AdvReac Type Severity Reaction Status Date / Time Penicillins Allergy Severe Anaphylaxis Verified 01/11/20 07:21 Sulfa (Sulfonamide Allergy Rash/Hives Verified 01/11/20 07:21 Antibiotics) Surgical - Exam Vital Signs Temp Pulse Resp BP Pulse Ox 97.2 F L 88 16 153/71 98 01/11/20 07:18 01/11/20 07:18 01/11/20 07:18 01/11/20 07:18 01/11/20 07:18 - General well developed, no distress - Eyes PERRL - ENT normal pinna - Neck no masses - Respiratory normal expansion - Cardiovascular Rhythm: regular - Abdomen Abdomen: soft, non tender Results - Labs Abnormal Lab Results - Last 24 Hours (Table) 01/11/20 Range/Units 07:25 POC Glucose (mg/dL) 160 H (75-99) mg/dL Assessment and Plan Assessment: Dysphagia, GERD, history of LAP-BAND. We'll perform EGD.
--- NOTE | 2020-01-11 08:21 | P.OP ---
Date of Procedure: 01/11/20 Preoperative Diagnosis: Screening colonoscopy Dysphagia Postoperative Diagnosis: Antral gastritis Retained gastric food Diverticulosis Procedure(s) Performed: EGD Colonoscopy Anesthesia: MAC Surgeon: [place] Walker Pathology: other (Antrum) Condition: stable Disposition: PACU Description of Procedure: The patient's placed on the endoscopy table lateral position. He received IV sedation. The gastroscope patient oropharynx passed in the esophagus and stomach. Scope then placed through the pylorus. The first and second portion of the duodenum appeared normal. Scope was then brought back the stomach and there was retained gastric food. A biopsy the antrum was performed. This was minimal inflamed. Scope was unretroflexed and remainder of the stomach appeared normal. There is no evidence of any inflammatory changes around the LAP-BAND device. The GE junction was at 40 cm the distal esophagus appeared normal. The proximal esophagus appeared normal. Scope withdrawn for patient. Next digital rectal exam was performed which revealed no rales. The possible colonoscope was then placed patient anus passed throughout the entire colon. The ileocecal valve sutures. The cecum, ascending transverse colon appeared normal. The descending; there is mild diverticular changes. Scope was then brought back the rectum and this appeared normal. Scope withdrawn for patient.
[2020-01-11 08:38] VITALS: BP 136/67; PULSE 79
== END 2020-01-11 08:59 | disposition home or self-care (01) ==
LOC: ORWHC2ENDO 07:04
PROVIDERS: ATTEND Surgery
DX: Z12.11 Encounter for screening for malignant neoplasm of colon (principal); K57.30 Diverticulosis of large intestine without perforation or abscess without bleeding; K29.50 Unspecified chronic gastritis without bleeding; K31.89 Other diseases of stomach and duodenum; K21.9 Gastro-esophageal reflux disease without esophagitis; E11.9 Type 2 diabetes mellitus without complications; I10 Essential (primary) hypertension; Z98.84 Bariatric surgery status; Z90.49 Acquired absence of other specified parts of digestive tract; Z90.89 Acquired absence of other organs; Z87.891 Personal history of nicotine dependence; Z79.899 Other long term (current) drug therapy; Z79.84 Long term (current) use of oral hypoglycemic drugs; Z79.82 Long term (current) use of aspirin; Z88.0 Allergy status to penicillin; Z88.2 Allergy status to sulfonamides
CPT/HCPCS: 88305; 43239; J2704; G0121

== ENCOUNTER → 2020-11-18 | Outpatient (CLI) | payer MEDICARE ==
[2020-11-18 13:52] VITALS: BP 132/84; PULSE 76; RESP 18; TEMP 98.3; BMI 39.4
--- NOTE | 2020-11-18 13:58 | P.HPBAR ---
Bariatric H&P - History & Physicial H&P Date: 11/18/20 History & Physicial: Visit/CC: Patient initial contact: Initial weight: Initial weight in pounds: Height: 5 ft 4.5 in Initial BMI: Last weight: Current weight: 106.005 kg Current weight in pounds: Current BMI: [place] body weight (based on NIH guidelines): Excess body weight loss: The patient is a 65 year-old M who presents for Bariatric Assessment. Patient wished to have an adjustment of his band. Past Medical History Past Medical History: Diabetes Mellitus, GERD/Reflux Additional Past Medical History / Comment(s): Type 2 DM, History of Any Multi-Drug Resistant Organisms: None Reported Past Surgical History: Bariatric Surgery, Cholecystectomy, Tonsillectomy Additional Past Surgical History / Comment(s): lap band placed 2012, Past Anesthesia/Blood Transfusion Reactions: No Reported Reaction Additional Past Anesthesia/Blood Transfusion Reaction / Comm: No blood transfusions to date Past Psychological History: Anxiety Smoking Status: Former smoker Past Alcohol Use History: None Reported Additional Past Alcohol Use History / Comment(s): STARTED SMOKING AT AGE 14 QUIT SMOKING 1994 SMOKED 1-2PPD Past Drug Use History: None Reported Additional Drug Use History / Comment(s): started smoking at age 13 quit at age 33, smoked 2ppd - Past Family History Mother Family Medical History: No Reported History Surgical - Exam - General well developed, well nourished, no distress - Eyes normal ocular movement - ENT normal pinna - Neck no masses - Respiratory normal expansion - Cardiovascular Rhythm: regular - Abdomen Abdomen: soft, non tender Bariatric Assessment & Plan Plan: His LAP-BAND was adjusted. 3 mL added to the band. He'll follow-up in one month. Bariatric Checklist Checklist: Plan: Checklist: EGD: 1. Hiatal hernia: 2. H. Pylori: HgbA1c: Vitamin D: Smoking: Former smoker Primary care physician referral: Psychiatry clearance: Cardiology clearance: Sleep study: Diet journal: VTE risk score: VTE risk level: Rehab needs at discharge:
== END | disposition home or self-care (01) ==
LOC: BARWHC3 13:29
PROVIDERS: ATTEND Surgery
DX: E66.01 Morbid (severe) obesity due to excess calories (principal); Z68.39 Body mass index [BMI] 39.0-39.9, adult
CPT/HCPCS: 99202

== ENCOUNTER 2021-01-08 13:44 | Emergency (ER) | payer MEDICARE ==
[2021-01-08 15:13] VITALS: TEMP 98.2
[2021-01-08 15:15] LABS: Glucose,Whole Blood 439 mg/dL (75-99)
[2021-01-08] MEDS ORDERED: SODIUM CHLORIDE 0.9% 1,000 ML IV ONE (16:42)
--- NOTE | 2021-01-08 16:43 | ED ---
Recheck HPI - General Chief Complaint: Recheck/Abnormal Lab/Rx Stated Complaint: Hyperglycemia Time Seen by Provider: 01/08/21 16:39 Source: patient Mode of arrival: ambulatory Limitations: no limitations - History of Present Illness Initial Comments: 55-year-old gentleman with a history of type 2 diabetes on 2 hyperglycemic medications. Patient presents the ER today reporting for the past week or so his glucose is been [id number]. He reports he's been compliant with medications. No change in his diet. No other illness. No fevers chills nausea or vomiting. He has had urinary frequency but he attributed this to his hyperglycemia. Today his sugars are reading over 400 which prompted him to come in for evaluation. She was previously on multiple oral hypoglycemics and was intact however was having episodes of hypoglycemia therefore was taken off those intake and his dose of glipizide was cut in half. - Related Data Home Medications Medication Instructions Recorded Confirmed Fexofenadine HCl [Lori Allergy] 180 mg PO DAILY 09/23/17 01/08/21 Multivitamin [Men's Multi-Vitamin] 1 tab PO DAILY 09/23/17 01/08/21 Omeprazole [PriLOSEC] 40 mg PO DAILY 09/23/17 01/08/21 Simvastatin [Zocor] 40 mg PO HS 09/23/17 01/08/21 lisinopriL [Zestril] 2.5 mg PO DAILY 09/23/17 01/08/21 metFORMIN HCL [Glucophage] 1,000 mg PO BID 09/23/17 01/08/21 ALPRAZolam [Xanax] 0.25 mg PO BID PRN 10/26/17 01/08/21 Fluticasone Nasal [place] [Flonase 2 spr EA NOSTRIL DAILY PRN 10/26/17 01/08/21 Nasal [place]] Aspirin EC [Ecotrin Low Dose] 81 mg PO DAILY 12/23/17 01/08/21 Calcium Carbonate/Vitamin D3 1 tab PO DAILY 01/03/20 01/08/21 [Calcium 500 mg-Vit D3 5 Mcg (200 Unit)] Famotidine 40 mg PO DAILY 01/03/20 01/08/21 Meclizine [Antivert] 12.5 mg PO TID PRN 01/03/20 01/08/21 Escitalopram [Lexapro] 20 mg PO DAILY 01/08/21 01/08/21 Propranolol HCl 10 mg PO BID 01/08/21 01/08/21 glipiZIDE XL [Glucotrol Xl] 10 mg PO BID 01/08/21 01/08/21 Allergies Allergy/AdvReac Type Severity Reaction Status Date / Time Penicillins Allergy Severe Anaphylaxis Verified 01/08/21 19:08 Sulfa (Sulfonamide Allergy Rash/Hives Verified 01/08/21 19:08 Antibiotics) Review of Systems ROS Statement: Those systems with pertinent positive or pertinent negative responses have been documented in the HPI. ROS Other: All systems not noted in ROS Statement are negative. Past Medical History Past Medical History: Diabetes Mellitus, GERD/Reflux Additional Past Medical History / Comment(s): Type 2 DM, History of Any Multi-Drug Resistant Organisms: None Reported Past Surgical History: Bariatric Surgery, Cholecystectomy, Tonsillectomy Additional Past Surgical History / Comment(s): lap band placed 2012, Past Anesthesia/Blood Transfusion Reactions: No Reported Reaction Additional Past Anesthesia/Blood Transfusion Reaction / Comment(s): No blood transfusions to date Past Psychological History: Anxiety Smoking Status: Former smoker Past Alcohol Use History: None Reported Past Drug Use History: None Reported - Past Family History Mother Family Medical History: No Reported History General Exam - General Exam Comments Initial Comments: Physical Exam GENERAL: Patient is well-developed and well-nourished. Patient is nontoxic and well-hydrated and is in no distress. HENT: Normocephalic, Atraumatic. EYES: PERRL, EOMI PULMONARY: Unlabored respirations. CARDIOVASCULAR: RRR Warm and well perfused extremities ABDOMEN: Non-distended SKIN: No rashes or bruising : Deferred NEUROLOGIC: Alert and oriented Normal speech Normal gait MUSCULOSKELETAL: Moving all extremities with no apparent injury PSYCHIATRIC: No SI/HI Limitations: no limitations Course Vital Signs 01/08/21 01/08/21 01/08/21 15:10 18:00 19:24 Temperature 98.2 F Pulse Rate 85 74 Respiratory 20 18 20 Rate Blood Pressure 138/55 137/66 O2 Sat by Pulse 98 98 Oximetry 01/08/21 21:32 Temperature Pulse Rate 74 Respiratory 20 Rate Blood Pressure 134/84 O2 Sat by Pulse 96 Oximetry Medical Decision Making - Medical Decision Making The patient was seen and evaluated, history is obtained from the patient, patient recently taken off one of his diabetic medications and a dose of a second medication was decreased by 50%. Since that time his glucose is been elevated. Patient had polyuria no other complaints. Labs were obtained that show signs of DKA patient is hyperglycemic. Patient received IV fluids 2 doses of insulin. Patient's glucose improving significantly. I advised patient to double his dose of glipizide, continue his dose of metformin and follow with his primary care provider regarding his glucose levels. Patient is agreeable to this plan. - Lab Data Result diagrams: 01/08/21 17:08 01/08/21 20:36 Lab Results 01/08/21 01/08/21 01/08/21 Range/Units 15:14 16:42 17:08 WBC 5.8 (3.8-10.6) k/uL RBC 4.43 (4.30-5.90) m/uL Hgb 13.0 (13.0-17.5) gm/dL Hct 38.9 L (39.0-53.0) % MCV 87.9 (80.0-100.0) fL MCH 29.3 (25.0-35.0) pg MCHC 33.3 (31.0-37.0) g/dL RDW 14.3 (11.5-15.5) % Plt Count 200 (150-450) k/uL MPV 8.5 Neutrophils % 53 % Lymphocytes % 29 % Monocytes % 7 % Eosinophils % 8 % Basophils % 1 % Neutrophils # 3.1 (1.3-7.7) k/uL Lymphocytes # 1.7 (1.0-4.8) k/uL Monocytes # 0.4 (0-1.0) k/uL Eosinophils # 0.4 (0-0.7) k/uL Basophils # 0.1 (0-0.2) k/uL VBG pH 7.40 (7.31-7.41) VBG pCO2 38 (37-51) mmHg VBG HCO3 23 L (24-28) mmol/L Sodium (137-145) mmol/L Potassium (3.5-5.1) mmol/L Chloride (98-107) mmol/L Carbon Dioxide (22-30) mmol/L Anion Gap mmol/L BUN (9-20) mg/dL Creatinine (0.66-1.25) mg/dL Est GFR (CKD-EPI)AfAm (>60 ml/min/1.73 sqM) Est GFR (CKD-EPI)NonAf (>60 ml/min/1.73 sqM) Glucose (74-99) mg/dL POC Glucose (mg/dL) 439 H (75-99) mg/dL POC Glu Estimator And Drafter ID Melissa Knowles Calcium (8.4-10.2) mg/dL Total Bilirubin (0.2-1.3) mg/dL AST (17-59) U/L ALT (4-49) U/L Alkaline Phosphatase (38-126) U/L Total Protein (6.3-8.2) g/dL Albumin (3.5-5.0) g/dL Urine Color Urine Appearance (Clear) Urine pH (5.0-8.0) Ur Specific [place] (1.001-1.035) Urine Protein (Negative) Urine Glucose (UA) (Negative) Urine Ketones (Negative) Urine Blood (Negative) Urine Nitrite (Negative) Urine Bilirubin (Negative) Urine Urobilinogen (<2.0) mg/dL Ur Leukocyte Esterase (Negative) Acetone, Qual (Negative) 01/08/21 01/08/21 01/08/21 Range/Units 17:08 17:08 18:58 WBC (3.8-10.6) k/uL RBC (4.30-5.90) m/uL Hgb (13.0-17.5) gm/dL Hct (39.0-53.0) % MCV (80.0-100.0) fL MCH (25.0-35.0) pg MCHC (31.0-37.0) g/dL RDW (11.5-15.5) % Plt Count (150-450) k/uL MPV Neutrophils % % Lymphocytes % % Monocytes % % Eosinophils % % Basophils % % Neutrophils # (1.3-7.7) k/uL Lymphocytes # (1.0-4.8) k/uL Monocytes # (0-1.0) k/uL Eosinophils # (0-0.7) k/uL Basophils # (0-0.2) k/uL VBG pH (7.31-7.41) VBG pCO2 (37-51) mmHg VBG HCO3 (24-28) mmol/L Sodium 136 L (137-145) mmol/L Potassium 4.7 (3.5-5.1) mmol/L Chloride 104 (98-107) mmol/L Carbon Dioxide 22 (22-30) mmol/L Anion Gap 10 mmol/L BUN 18 (9-20) mg/dL Creatinine 0.92 (0.66-1.25) mg/dL Est GFR (CKD-EPI)AfAm >90 (>60 ml/min/1.73 sqM) Est GFR (CKD-EPI)NonAf 86 (>60 ml/min/1.73 sqM) Glucose 476 H (74-99) mg/dL POC Glucose (mg/dL) 412 H (75-99) mg/dL POC Glu Estimator And Drafter ID Milady Santos Calcium 9.3 (8.4-10.2) mg/dL Total Bilirubin 0.4 (0.2-1.3) mg/dL AST 30 (17-59) U/L ALT 27 (4-49) U/L Alkaline Phosphatase 53 (38-126) U/L Total Protein 6.5 (6.3-8.2) g/dL Albumin 4.0 (3.5-5.0) g/dL Urine Color Light Yellow Urine Appearance Clear (Clear) Urine pH 5.5 (5.0-8.0) Ur Specific Hamilton 1.031 (1.001-1.035) Urine Protein Negative (Negative) Urine Glucose (UA) 4+ H (Negative) Urine Ketones Negative (Negative) Urine Blood Negative (Negative) Urine Nitrite Negative (Negative) Urine Bilirubin Negative (Negative) Urine Urobilinogen <2.0 (<2.0) mg/dL Ur Leukocyte Esterase Negative (Negative) Acetone, Qual Negative (Negative) 01/08/21 01/08/21 Range/Units 20:36 20:49 WBC (3.8-10.6) k/uL RBC (4.30-5.90) m/uL Hgb (13.0-17.5) gm/dL Hct (39.0-53.0) % MCV (80.0-100.0) fL MCH (25.0-35.0) pg MCHC (31.0-37.0) g/dL RDW (11.5-15.5) % Plt Count (150-450) k/uL MPV Neutrophils % % Lymphocytes % % Monocytes % % Eosinophils % % Basophils % % Neutrophils # (1.3-7.7) k/uL Lymphocytes # (1.0-4.8) k/uL Monocytes # (0-1.0) k/uL Eosinophils # (0-0.7) k/uL Basophils # (0-0.2) k/uL VBG pH (7.31-7.41) VBG pCO2 (37-51) mmHg VBG HCO3 (24-28) mmol/L Sodium (137-145) mmol/L Potassium (3.5-5.1) mmol/L Chloride (98-107) mmol/L Carbon Dioxide (22-30) mmol/L Anion Gap mmol/L BUN (9-20) mg/dL Creatinine (0.66-1.25) mg/dL Est GFR (CKD-EPI)AfAm (>60 ml/min/1.73 sqM) Est GFR (CKD-EPI)NonAf (>60 ml/min/1.73 sqM) Glucose 310 H (74-99) mg/dL POC Glucose (mg/dL) 287 H (75-99) mg/dL POC Glu Estimator And Drafter ID Arlyn, Araceli Calcium (8.4-10.2) mg/dL Total Bilirubin (0.2-1.3) mg/dL AST (17-59) U/L ALT (4-49) U/L Alkaline Phosphatase (38-126) U/L Total Protein (6.3-8.2) g/dL Albumin (3.5-5.0) g/dL Urine Color Urine Appearance (Clear) Urine pH (5.0-8.0) Ur Specific [place] (1.001-1.035) Urine Protein (Negative) Urine Glucose (UA) (Negative) Urine Ketones (Negative) Urine Blood (Negative) Urine Nitrite (Negative) Urine Bilirubin (Negative) Urine Urobilinogen (<2.0) mg/dL Ur Leukocyte Esterase (Negative) Acetone, Qual (Negative) Disposition Clinical Impression: Hyperglycemia due to type 2 diabetes mellitus Disposition: HOME SELF-CARE Condition: Stable Additional Instructions: Increase your dose of Glipizide back to 10mg twice daily Follow up with your primary care doctor within a week Is patient prescribed a controlled substance at d/c from ED?: No Referrals: Cassandra Cool MD [Primary Care Provider] - 1-2 days
[2021-01-08 17:18] LABS: Basophils # (A) 0.1 k/uL (0-0.2); Basophils % (A) 1 %; Eosinophils # (A) 0.4 k/uL (0-0.7); Eosinophils % (A) 8 %; HCT 38.9 % (39.0-53.0); Lymphocytes # (A) 1.7 k/uL (1.0-4.8); Lymphocytes % (A) 29 %; MCH 29.3 pg (25.0-35.0); MCHC 33.3 g/dL (31.0-37.0); MCV 87.9 fL (80.0-100.0); Mean Platelet Volume 8.5; Monocytes # (A) 0.4 k/uL (0-1.0); Monocytes % (A) 7 %; Neutrophils # (A) 3.1 k/uL (1.3-7.7); Neutrophils % (A) 53 %; Platelet Count 200 k/uL (150-450); RBC 4.43 m/uL (4.30-5.90); RDW 14.3 % (11.5-15.5); WBC 5.8 k/uL (3.8-10.6)
[2021-01-08 17:19] LABS: Appearance,Urine Clear (Clear); Bilirubin,Urine Negative (Negative); Blood,Urine Negative (Negative); Color,Urine Light Yellow; Glucose,Urine (UA) 4+ (Negative); Ketones,Urine Negative (Negative); Leukocyte Esterase,Urine Negative (Negative); Nitrite,Urine Negative (Negative); PH, Urine 5.5 (5.0-8.0); Protein,Urine Negative (Negative); Specific Gravity,Urine 1.031 (1.001-1.035); Urobilinogen,Urine <2.0 mg/dL (<2.0)
[2021-01-08 17:23] LABS: VBG PH 7.4 (7.31-7.41)
[2021-01-08 17:30] LABS: ALT 27 U/L (4-49); AST 30 U/L (17-59); African American GFR (CKD) >90 (>60 ml/min/1.73 sqM); Alkaline Phosphatase 53 U/L (38-126); Anion Gap 10 mmol/L; Blood Urea Nitrogen 18 mg/dL (9-20); Calcium 9.3 mg/dL (8.4-10.2); Carbon Dioxide 22 mmol/L (22-30); Chloride 104 mmol/L (98-107); Glucose 476 mg/dL (74-99); Non-African American GFR(CKD) 86 (>60 ml/min/1.73 sqM); Potassium 4.7 mmol/L (3.5-5.1); Sodium 136 mmol/L (137-145); Total Bilirubin 0.4 mg/dL (0.2-1.3); Total Protein 6.5 g/dL (6.3-8.2)
[2021-01-08] MEDS ORDERED: INSULIN REGULAR 100 UNIT/ML VIAL (IM/SQ) SQ ONE ×2 (17:48→19:11)
--- NOTE | 2021-01-08 18:04 | XR ---
EXAMINATION TYPE: XR chest 1V DATE OF EXAM: 01/08/2021 COMPARISON: 09/24/2010 HISTORY: Infection. Hyperglycemia. TECHNIQUE: Single view FINDINGS: Heart and mediastinum are normal. Lungs are clear. Diaphragm is normal. Bony thorax is inta ct. IMPRESSION: Normal chest. No change.
[2021-01-08 19:00] LABS: Glucose,Whole Blood 412 mg/dL (75-99)
[2021-01-08 19:26] VITALS: PULSE 74; RESP 20
[2021-01-08 20:50] LABS: Glucose,Whole Blood 287 mg/dL (75-99)
[2021-01-08 21:33] VITALS: BP 134/84
== END 2021-01-08 21:33 | disposition home or self-care (01) ==
LOC: EC 13:44
DX: E11.65 Type 2 diabetes mellitus with hyperglycemia (principal); K21.9 Gastro-esophageal reflux disease without esophagitis; F41.9 Anxiety disorder, unspecified; Z79.84 Long term (current) use of oral hypoglycemic drugs; Z79.82 Long term (current) use of aspirin; Z88.0 Allergy status to penicillin; Z88.2 Allergy status to sulfonamides; Z90.49 Acquired absence of other specified parts of digestive tract; Z98.84 Bariatric surgery status; Z87.891 Personal history of nicotine dependence; Z79.899 Other long term (current) drug therapy
CPT/HCPCS: 36415; 71045; 80053; 81003; 82009; 82803; 82947; 85025; 96360; 99285

== ENCOUNTER 2021-04-17 08:21 | Emergency (ER) | payer MEDICARE ==
[2021-04-17 08:27] VITALS: RESP 18
--- NOTE | 2021-04-17 08:48 | ED ---
General Adult HPI - General Chief complaint: Shortness of Breath Stated complaint: SOB Time Seen by Provider: 04/17/21 08:29 Source: patient, RN notes reviewed, old records reviewed Mode of arrival: ambulatory Limitations: no limitations - History of Present Illness Initial comments: 65 yo male presenting for evaluation of dyspnea. Patient has had mild cough. He's had several episodes of diarrhea and some abdominal discomfort. No central chest pain. No leg swelling. Patient has had 3 vaccines against coronavirus but is concerned about coronavirus. No measured fever. - Related Data Home Medications Medication Instructions Recorded Confirmed Fexofenadine HCl [Lori Allergy] 180 mg PO DAILY 09/23/17 04/17/21 Multivitamin [Men's Multi-Vitamin] 1 tab PO DAILY 09/23/17 04/17/21 Omeprazole [PriLOSEC] 40 mg PO DAILY 09/23/17 04/17/21 Simvastatin [Zocor] 40 mg PO HS 09/23/17 04/17/21 lisinopriL [Zestril] 2.5 mg PO DAILY 09/23/17 04/17/21 metFORMIN HCL [Glucophage] 1,000 mg PO BID 09/23/17 04/17/21 Aspirin EC [Ecotrin Low Dose] 81 mg PO DAILY 12/23/17 04/17/21 Calcium Carbonate/Vitamin D3 1 tab PO DAILY 01/03/20 04/17/21 [Calcium 500 mg-Vit D3 5 Mcg (200 Unit)] Escitalopram [Lexapro] 20 mg PO DAILY 01/08/21 04/17/21 Propranolol HCl 10 mg PO BID 01/08/21 04/17/21 glipiZIDE XL [Glucotrol Xl] 10 mg PO BID 01/08/21 04/17/21 Dapagliflozin Propanediol [Farxiga] 10 mg PO DAILY 04/17/21 04/17/21 Pioglitazone [Actos] 30 mg PO DAILY 04/17/21 04/17/21 Allergies Allergy/AdvReac Type Severity Reaction Status Date / Time Penicillins Allergy Severe Anaphylaxis Verified 04/17/21 09:19 Sulfa (Sulfonamide Allergy Rash/Hives Verified 04/17/21 09:19 Antibiotics) Review of Systems ROS Statement: Those systems with pertinent positive or pertinent negative responses have been documented in the HPI. ROS Other: All systems not noted in ROS Statement are negative. Past Medical History Past Medical History: Diabetes Mellitus, GERD/Reflux Additional Past Medical History / Comment(s): Type 2 DM, History of Any Multi-Drug Resistant Organisms: None Reported Past Surgical History: Bariatric Surgery, Cholecystectomy, Tonsillectomy Additional Past Surgical History / Comment(s): lap band placed 2012, Past Anesthesia/Blood Transfusion Reactions: No Reported Reaction Additional Past Anesthesia/Blood Transfusion Reaction / Comment(s): No blood transfusions to date Past Psychological History: No Psychological Hx Reported Smoking Status: Former smoker Past Alcohol Use History: None Reported Past Drug Use History: None Reported - Past Family History Mother Family Medical History: No Reported History General Exam Limitations: no limitations General appearance: alert, in no apparent distress Head exam: Present: atraumatic, normocephalic Eye exam: Present: normal appearance, PERRL ENT exam: Present: normal exam, mucous membranes moist Neck exam: Present: normal inspection. Absent: tenderness Respiratory exam: Present: normal lung sounds bilaterally. Absent: respiratory distress, wheezes, rales Cardiovascular Exam: Present: regular rate, normal rhythm GI/Abdominal exam: Present: soft, tenderness (very mild tenderness). Absent: distended, guarding, rebound Extremities exam: Present: normal inspection, normal capillary refill. Absent: pedal edema, calf tenderness Neurological exam: Present: alert, oriented X3, CN II-XII intact. Absent: motor sensory deficit Psychiatric exam: Present: normal affect, normal mood Skin exam: Present: warm, dry, intact. Absent: cyanosis, diaphoretic Course Vital Signs 04/17/21 04/17/21 08:23 09:25 Temperature 98 F 98.5 F Pulse Rate 91 92 Respiratory 18 18 Rate Blood Pressure 131/81 132/78 O2 Sat by Pulse 98 97 Oximetry EKG Findings - EKG Comments: EKG Findings:: EKG: Sinus rhythm with first-degree AV block, rate of 85, TX interval 216, QRS duration 78, QTC 428. No ST segment elevation. Medical Decision Making - Medical Decision Making 65-year-old male presenting with mild dyspnea, diarrhea, concern for coronavirus. Chest x-ray clear, CBC, CMP within normal limits. Coronavirus testing is negative. I did perform a troponin and d-dimer on this patient with dyspnea which are both negative. Patient reassured. Return parameters discusse d. He will follow-up with his primary care physician - Lab Data Result diagrams: 04/17/21 08:49 04/17/21 08:49 Lab Results 04/17/21 04/17/21 04/17/21 Range/Units 08:28 08:49 08:49 WBC 9.6 (3.8-10.6) k/uL RBC 5.36 (4.30-5.90) m/uL Hgb 15.4 (13.0-17.5) gm/dL Hct 46.2 (39.0-53.0) % MCV 86.2 (80.0-100.0) fL MCH 28.8 (25.0-35.0) pg MCHC 33.4 (31.0-37.0) g/dL RDW 14.0 (11.5-15.5) % Plt Count 256 (150-450) k/uL MPV 8.3 Neutrophils % 64 % Lymphocytes % 19 % Monocytes % 9 % Eosinophils % 7 % Basophils % 0 % Neutrophils # 6.1 (1.3-7.7) k/uL Lymphocytes # 1.8 (1.0-4.8) k/uL Monocytes # 0.8 (0-1.0) k/uL Eosinophils # 0.7 (0-0.7) k/uL Basophils # 0.0 (0-0.2) k/uL PT (9.0-12.0) sec INR (<1.2) APTT (22.0-30.0) sec D-Dimer (<0.60) mg/L FEU Sodium (137-145) mmol/L Potassium (3.5-5.1) mmol/L Chloride (98-107) mmol/L Carbon Dioxide (22-30) mmol/L Anion Gap mmol/L BUN (9-20) mg/dL Creatinine (0.66-1.25) mg/dL Est GFR (CKD-EPI)AfAm (>60 ml/min/1.73 sqM) Est GFR (CKD-EPI)NonAf (>60 ml/min/1.73 sqM) Glucose (74-99) mg/dL POC Glucose (mg/dL) 189 H (75-99) mg/dL POC Glu Hay Buckler Victoriano Kelly Plasma Lactic Acid Víctor (0.7-2.0) mmol/L Calcium (8.4-10.2) mg/dL Magnesium (1.6-2.3) mg/dL Total Bilirubin (0.2-1.3) mg/dL AST (17-59) U/L ALT (4-49) U/L Alkaline Phosphatase (38-126) U/L Troponin I (0.000-0.034) ng/mL NT-Pro-B Natriuret Pep pg/mL Total Protein (6.3-8.2) g/dL Albumin (3.5-5.0) g/dL Coronavirus (PCR) Not Detected (Not Detectd) 04/17/21 04/17/21 04/17/21 Range/Units 08:49 08:49 08:49 WBC (3.8-10.6) k/uL RBC (4.30-5.90) m/uL Hgb (13.0-17.5) gm/dL Hct (39.0-53.0) % MCV (80.0-100.0) fL MCH (25.0-35.0) pg MCHC (31.0-37.0) g/dL RDW (11.5-15.5) % Plt Count (150-450) k/uL MPV Neutrophils % % Lymphocytes % % Monocytes % % Eosinophils % % Basophils % % Neutrophils # (1.3-7.7) k/uL Lymphocytes # (1.0-4.8) k/uL Monocytes # (0-1.0) k/uL Eosinophils # (0-0.7) k/uL Basophils # (0-0.2) k/uL PT 10.4 (9.0-12.0) sec INR 1.0 (<1.2) APTT 21.7 L (22.0-30.0) sec D-Dimer 0.32 (<0.60) mg/L FEU Sodium 136 L (137-145) mmol/L Potassium 4.8 (3.5-5.1) mmol/L Chloride 103 (98-107) mmol/L Carbon Dioxide 22 (22-30) mmol/L Anion Gap 11 mmol/L BUN 18 (9-20) mg/dL Creatinine 1.03 (0.66-1.25) mg/dL Est GFR (CKD-EPI)AfAm 87 (>60 ml/min/1.73 sqM) Est GFR (CKD-EPI)NonAf 75 (>60 ml/min/1.73 sqM) Glucose 155 H (74-99) mg/dL POC Glucose (mg/dL) (75-99) mg/dL POC Glu Hay Buckler ID Plasma Lactic Acid Víctor 1.3 (0.7-2.0) mmol/L Calcium 9.5 (8.4-10.2) mg/dL Magnesium 1.7 (1.6-2.3) mg/dL Total Bilirubin 0.8 (0.2-1.3) mg/dL AST 24 (17-59) U/L ALT 26 (4-49) U/L Alkaline Phosphatase 68 (38-126) U/L Troponin I (0.000-0.034) ng/mL NT-Pro-B Natriuret Pep pg/mL Total Protein 7.1 (6.3-8.2) g/dL Albumin 4.2 (3.5-5.0) g/dL Coronavirus (PCR) (Not Detectd) 04/17/21 04/17/21 Range/Units 08:49 08:49 WBC (3.8-10.6) k/uL RBC (4.30-5.90) m/uL Hgb (13.0-17.5) gm/dL Hct (39.0-53.0) % MCV (80.0-100.0) fL MCH (25.0-35.0) pg MCHC (31.0-37.0) g/dL RDW (11.5-15.5) % Plt Count (150-450) k/uL MPV Neutrophils % % Lymphocytes % % Monocytes % % Eosinophils % % Basophils % % Neutrophils # (1.3-7.7) k/uL Lymphocytes # (1.0-4.8) k/uL Monocytes # (0-1.0) k/uL Eosinophils # (0-0.7) k/uL Basophils # (0-0.2) k/uL PT (9.0-12.0) sec INR (<1.2) APTT (22.0-30.0) sec D-Dimer (<0.60) mg/L FEU Sodium (137-145) mmol/L Potassium (3.5-5.1) mmol/L Chloride (98-107) mmol/L Carbon Dioxide (22-30) mmol/L Anion Gap mmol/L BUN (9-20) mg/dL Creatinine (0.66-1.25) mg/dL Est GFR (CKD-EPI)AfAm (>60 ml/min/1.73 sqM) Est GFR (CKD-EPI)NonAf (>60 ml/min/1.73 sqM) Glucose (74-99) mg/dL POC Glucose (mg/dL) (75-99) mg/dL POC Glu Hay Buckler ID Plasma Lactic Acid Víctor (0.7-2.0) mmol/L Calcium (8.4-10.2) mg/dL Magnesium (1.6-2.3) mg/dL Total Bilirubin (0.2-1.3) mg/dL AST (17-59) U/L ALT (4-49) U/L Alkaline Phosphatase (38-126) U/L Troponin I <0.012 (0.000-0.034) ng/mL NT-Pro-B Natriuret Pep 22 pg/mL Total Protein (6.3-8.2) g/dL Albumin (3.5-5.0) g/dL Coronavirus (PCR) (Not Detectd) Disposition Clinical Impression: Viral syndrome, Diarrhea Disposition: HOME SELF-CARE Condition: Fair Instructions (If sedation given, give patient instructions): Acute Diarrhea (ED) Is patient prescribed a controlled substance at d/c from ED?: No Referrals: Samara Nick NPC [Primary Care Provider] - 1-2 days Time of Disposition: 10:28
--- NOTE | 2021-04-17 09:14 | XR ---
EXAMINATION TYPE: XR chest 2V DATE OF EXAM: 04/17/2021 COMPARISON: Chest x-ray January 08, 2021 HISTORY: Shortness of breath TECHNIQUE: Frontal and lateral views of the chest are obtained. FINDINGS: There is mild chronic emphysematous changes are present without suspicious new focal air s pace opacity, pleural effusion, or pneumothorax seen. The cardiac silhouette size remains within nor mal limits. Bridging osteophytes in the thoracic spine are seen. Cholecystectomy clips are noted LAP- BAND device is redemonstrated. IMPRESSION: Chronic changes without acute pulmonary process.
[2021-04-17 09:28] VITALS: TEMP 98.5
[2021-04-17 09:28] LABS: Albumin 4.2 g/dL (3.5-5.0); Calcium 9.5 mg/dL (8.4-10.2); Magnesium 1.7 mg/dL (1.6-2.3); Potassium 4.8 mmol/L (3.5-5.1); Total Bilirubin 0.8 mg/dL (0.2-1.3); Total Protein 7.1 g/dL (6.3-8.2)
[2021-04-17 09:37] LABS: Prothrombin Time 10.4 sec (9.0-12.0)
[2021-04-17 09:41] LABS: Basophils % (A) 0 %; Eosinophils # (A) 0.7 k/uL (0-0.7); Eosinophils % (A) 7 %; HCT 46.2 % (39.0-53.0); HGB 15.4 gm/dL (13.0-17.5); Lymphocytes # (A) 1.8 k/uL (1.0-4.8); Lymphocytes % (A) 19 %; MCH 28.8 pg (25.0-35.0); MCHC 33.4 g/dL (31.0-37.0); MCV 86.2 fL (80.0-100.0); Mean Platelet Volume 8.3; Monocytes # (A) 0.8 k/uL (0-1.0); Monocytes % (A) 9 %; Neutrophils # (A) 6.1 k/uL (1.3-7.7); Neutrophils % (A) 64 %; Platelet Count 256 k/uL (150-450); RBC 5.36 m/uL (4.30-5.90); WBC 9.6 k/uL (3.8-10.6)
[2021-04-17 09:43] LABS: Glucose,Whole Blood 189 mg/dL (75-99)
[2021-04-17 10:15] LABS: Partial Thromboplastin Time 21.7 sec (22.0-30.0)
[2021-04-17 10:48] VITALS: BP 123/78; PULSE 91
== END 2021-04-17 10:46 | disposition home or self-care (01) ==
LOC: EC 08:21
DX: B34.9 Viral infection, unspecified (principal); R19.7 Diarrhea, unspecified; E11.9 Type 2 diabetes mellitus without complications; K21.9 Gastro-esophageal reflux disease without esophagitis; Z20.822 Contact with and (suspected) exposure to COVID-19; Z79.84 Long term (current) use of oral hypoglycemic drugs; Z79.82 Long term (current) use of aspirin; Z88.0 Allergy status to penicillin; Z88.2 Allergy status to sulfonamides; Z98.84 Bariatric surgery status; Z90.49 Acquired absence of other specified parts of digestive tract; Z87.891 Personal history of nicotine dependence
CPT/HCPCS: 36415; 71046; 80053; 83605; 83735; 83880; 84484; 85025; 85379; 85610; 85730; 87635; 93005; 99285

== ENCOUNTER → 2021-07-16 | Outpatient (CLI) | payer MEDICARE ==
[2021-07-16 10:54] LABS: BUN/Creat Ratio 14.59 Ratio (12.00-20.00); Chol/HDL Ratio 3.17 Ratio; LDL Cholesterol,Calculated 85.8 mg/dL (0.0-131.0); VLDL Calculation 18.94 mg/dL (5.00-40.00)
[2021-07-16 10:55] LABS: ALT 25 U/L (10-49); AST 18 U/L (14-35); Albumin 4.1 g/dL (3.8-4.9); Albumin/Globulin Ratio 2.04 (1.60-3.17); Alkaline Phosphatase 44 U/L (41-126); Blood Urea Nitrogen 13.7 mg/dL (9.0-27.0); Calcium 8.9 mg/dL (8.7-10.3); Carbon Dioxide 25.5 mmol/L (20.0-27.5); Chloride 109 mmol/L (96-109); Glucose 102 mg/dL (70-110); Non-African American GFR(CKD) 83.7 (60.0-200.0); Potassium 4.3 mmol/L (3.5-5.5); Sodium 143 mmol/L (135-145); Total Protein 6.1 g/dL (6.2-8.2)
[2021-07-16 18:20] LABS: Microalbumin Creatinine Ratio <30 mg/g Creat (0-30)
== END | disposition home or self-care (01) ==
LOC: LABWHC1 06:58
PROVIDERS: ATTEND Internal Medicine Endocrinology, Diabetes & Metabolism
DX: E11.65 Type 2 diabetes mellitus with hyperglycemia (principal)
CPT/HCPCS: 36415; 80053; 80061; 82043; 82570; 83036; 84443

== ENCOUNTER 2021-09-24 10:02 | Day surgery (SDC) | payer MEDICARE ==
--- NOTE | 2021-09-23 08:26 | P.HPOR ---
History of Present Illness H&P Date: 09/23/21 Chief Complaint: Right small finger Dupuytren's Contracture Subjective: This is a 65 year old male that presents today for initial evaluation regarding a 10 year history of right small finger flexion deformity. He states he has been having trouble using the hand due to the fixed flexed deformity and can no long wear gloves and often pokes himself in the face at night and while washing his face. He denies any pain and has not had prior surgery on this hand in the past. Physical Examination: RUE: AIN/PIN/Radial/Ulnar/Median motor intact. Radial/Ulnar/Median SILT. 2+/4 Radial/Ulnar pulses palpated. 5/5 APB, 5/5 FDI. Negative Finkelsteins, negative CMC grind, negative Durkan's compression. Righg small finger PIP held in 60 degrees of flexion, MCP joint held in 60 degrees of flexion with pretendinous and spiral chord palpable on volar aspect of digit. Imaging: X-Rays of the right finger demonstrate flex posture of PIP and MCP joint with no appreciable arthritic changes present. Impression: 1.) Right small finger Dupuytren's contracture Plan: Diagnosis and treatment options were discussed with the patient. Due to the contracture interfering with his daily activities I recommend surgical intervention. Risks and benefits of surgery including bleeding, infection, damage to surrounding tissue, need for further surgery, residual numbness, persistent contracture, and recurrence were discussed and the patient wished to go forward with surgery. PCP clearance will be requested and he will be scheduled for right small finger Dupuytren's palmar fasciectomy with possible PIP contracture release if needed. -Ezra Rodriguez DO Orthopedic Hand/Upper Extremity Surgeon Past Medical History Past Medical History: Diabetes Mellitus, GERD/Reflux Additional Past Medical History / Comment(s): Type 2 DM, History of Any Multi-Drug Resistant Organisms: None Reported Past Surgical History: Bariatric Surgery, Cholecystectomy, Tonsillectomy Additional Past Surgical History / Comment(s): lap band placed 2012, colonoscopy Past Anesthesia/Blood Transfusion Reactions: No Reported Reaction Additional Past Anesthesia/Blood Transfusion Reaction / Comment(s): No blood transfusions to date Smoking Status: Former smoker - Past Family History Mother Family Medical History: Congestive Heart Failure (CHF), Diabetes Mellitus Father Family Medical History: Coronary Artery Disease (CAD) Medications and Allergies Home Medications Medication Instructions Recorded Confirmed Type Fexofenadine HCl [Lori Allergy] 180 mg PO DAILY 09/23/17 09/22/21 History Multivitamin [Men's Multi-Vitamin] 1 tab PO DAILY 09/23/17 09/22/21 History Omeprazole [PriLOSEC] 40 mg PO DAILY 09/23/17 09/22/21 History Simvastatin [Zocor] 40 mg PO HS 09/23/17 09/22/21 History lisinopriL [Zestril] 2.5 mg PO DAILY 09/23/17 09/22/21 History metFORMIN HCL [Glucophage] 1,000 mg PO BID 09/23/17 09/22/21 History Aspirin EC [Ecotrin Low Dose] 81 mg PO DAILY 12/23/17 09/22/21 History Calcium Carbonate/Vitamin D3 1 tab PO DAILY 01/03/20 09/22/21 History [Calcium 500 mg-Vit D3 5 Mcg (200 Unit)] Escitalopram [Lexapro] 20 mg PO DAILY 01/08/21 09/22/21 History Propranolol HCl 10 mg PO BID 01/08/21 09/22/21 History glipiZIDE XL [Glucotrol Xl] 10 mg PO BID 01/08/21 09/22/21 History Dapagliflozin Propanediol [Farxiga] 10 mg PO DAILY 04/17/21 09/22/21 History Pioglitazone [Actos] 30 mg PO DAILY 04/17/21 09/22/21 History Allergies Allergy/AdvReac Type Severity Reaction Status Date / Time Penicillins Allergy Severe Anaphylaxis Verified 09/22/21 14:25 Sulfa (Sulfonamide Allergy Rash/Hives Verified 09/22/21 14:25 Antibiotics) Physical Examination Osteopathic Statement: *. No significant issues noted on an osteopathic structural exam other than those noted in the History and Physical/Consult.
[~2021-09-24 10:02] MED LIST changes: +LIDOCAINE 1% (10MG/ML) FOR IV START INTRADERMA PRN; +fentaNYL (PF) 50 MCG/ML 2 ML AMP IV PRN
[2021-09-24 10:24] LABS: Glucose,Whole Blood 72 mg/dL (70-110)
[2021-09-24] MEDS ORDERED: ONDANSETRON 4 MG/2 ML VIAL ONE (10:46)
[2021-09-24] MEDS ORDERED: ONDANSETRON 4 MG/2 ML VIAL IVP ONE (10:49)
[2021-09-24] MEDS ORDERED: DEXAMETHASONE SOD PHOSPHATE 4 MG/ML 1 ML VIAL IVP ONE (10:50)
[2021-09-24 11:29] LABS: Glucose,Whole Blood 83 mg/dL (70-110)
[2021-09-24] MEDS ORDERED: LIDOCAINE 2% INJ 20 MG/ML (2 ML VIAL) ONE (11:30)
[2021-09-24] MEDS ORDERED: fentaNYL (PF) 50 MCG/ML 2 ML AMP ONE (11:30)
[2021-09-24] MEDS ORDERED: MIDAZOLAM 2 MG/2 ML VIAL ONE (11:30)
[2021-09-24] MEDS ORDERED: SUCCINYLCHOLINE CHLORIDE 100 MG/5 ML SYR IV ONE (11:30)
[2021-09-24] MEDS ORDERED: ALBUTEROL HFA INHALER INHALATION ONE (11:30)
[2021-09-24] MEDS ORDERED: PROPOFOL 10 MG/ML 20 ML VIAL IV ONE (11:30)
[2021-09-24] MEDS ORDERED: BUPIVACAINE (PF) 0.5% 30 ML VIAL SQ ONE ×2 (11:35→12:21)
[2021-09-24 12:43] VITALS: TEMP 96.8
[2021-09-24] MEDS ORDERED: HYDROmorphone 0.5 MG/0.5 ML SYRINGE IVP ONE (12:51)
[2021-09-24 13:30] VITALS: RESP 20
[2021-09-24 13:45] LABS: Glucose,Whole Blood 158 mg/dL (70-110)
[2021-09-24 13:47] VITALS: BP 134/77; PULSE 82
--- NOTE | 2021-09-24 18:45 | P.OP ---
Date of Procedure: 09/24/21 Preoperative Diagnosis: Right small finger Dupuytren's contracture Postoperative Diagnosis: Right small finger Dupuytren's contracture Procedure(s) Performed: 1.) Right small finger palmar fasciectomy Anesthesia: WALKER Surgeon: Ezra Rodriguez Code Inspector #1: August Felix Estimated Blood Loss (ml): 0 Pathology: none sent Condition: stable Disposition: PACU Description of Procedure: This is a 66year old male who presents today for surgical intervention for a right small finger Dupuytren's contracture that has failed conservative treatment that has been flexed at 100 degrees for 10 years. Risks and benefits of surgery were discussed with the patient including bleeding, damage to surrounding tissue, infection, recurrence, need for further surgery as well as risks of anesthesia including pulmonary embolism and even and the patient wished to proceed with surgical intervention. The patient was seen in the pre- operative area by myself. Consent and H&P were completed and updated. The correct extremity was marked in the pre-operative area by myself and all other questions were answered. Operative Narrative: The patient was brought to the operating room by the department of anesthesia. They remained on the portable stretcher and a rolling hand table was brought to the side of the operative extremity. Pre-operative time out was performed indicating the correct patient, procedure and laterality. All in the room agreed. Pre-operative antibiotics were given prior to skin incision. The patient was then drifted off to sleep by the department of anesthesia. A nonsterile tourniquet was then applied to the operative extremity and the right upper extremity was then prepped and draped in normal sterile fashion. The operative extremity was the exsanguinated with an esmarch bandage and the tourniquet was inflated to 250mmHg. 15 blade scalpel was then used to make a incision in a Armani type fashion of the right small finger Dupuytren's cord from the level of the mid palm to the level of the PIP joint crease. Blunt dissection was taken down to reveal the thickened Dupuytrens chord originating from the palmar fascia. Neurovascular bundles were identified and protected and blunt tentomy scissors and combination of 15 blade scalpel were used to the pathologic fascial tissues from surrounding structures. The thick fascial tissue was well dissected out from deep and superficial tissues and released from it's proximal attachment to the palmar fascia and then released in a proximal to distal fashion. After excision at the distal portion attachment at the level of the PIP joint crease the finger was able to be nearly fully extended. Radial and ulnar neurovascular bundles were identified and intact. The wound was then irrigated and skin closure was performed with 4-0 nylon sutures, due to the tightness of the skin during loose closure the finger was still held in 15 degrees of flexion but was able to be passively extended to 0 degrees. 10cc's total of 0.5% bupivicaine was injected to perform digital block of the small finger. Large bulky soft dressing with fluffs, adaptic, bacitracin, cast padding and anita wrap was applied. Tourniquet was let down and all digits had immediate perfusion. The patient was then woken by the department of anesthesia and transferred to PACU in stable condition. August GARCIA was present for the case in it's entirety to assist in rivas portions of the case and protection of vital neurovascular structures. Ezra Rodriguez D.O. Orthopedic Hand/Upper Extremity Surgeon
== END 2021-09-24 14:03 | disposition home or self-care (01) ==
LOC: OR 10:02
PROVIDERS: ATTEND Orthopaedic Surgery Hand Surgery
DX: M72.0 Palmar fascial fibromatosis [Dupuytren] (principal); E11.9 Type 2 diabetes mellitus without complications; K21.9 Gastro-esophageal reflux disease without esophagitis; Z98.84 Bariatric surgery status; Z90.49 Acquired absence of other specified parts of digestive tract; Z98.890 Other specified postprocedural states; Z87.891 Personal history of nicotine dependence; Z83.3 Family history of diabetes mellitus; Z82.49 Family history of ischemic heart disease and other diseases of the circulatory system; I10 Essential (primary) hypertension; F32.A Depression, unspecified; K44.9 Diaphragmatic hernia without obstruction or gangrene; Z83.49 Family history of other endocrine, nutritional and metabolic diseases; Z80.8 Family history of malignant neoplasm of other organs or systems; Z82.0 Family history of epilepsy and other diseases of the nervous system; Z79.84 Long term (current) use of oral hypoglycemic drugs; Z79.82 Long term (current) use of aspirin; Z79.899 Other long term (current) drug therapy; Z88.0 Allergy status to penicillin; Z88.2 Allergy status to sulfonamides
CPT/HCPCS: 26045; 26525; J2250; J1100; J0690; J2405; J3010; J0330; J2704; J1170; J2001

== ENCOUNTER → 2022-02-02 | Outpatient (CLI) | payer MEDICARE ==
--- NOTE | 2022-02-03 08:26 | US ---
EXAMINATION TYPE: US duplex aorta DATE OF EXAM: 02/02/2022 COMPARISON: CLINICAL HISTORY: I71.4 ABDOMINAL AORTIC ANEURYSM, WITHOUT RUPTURE. Previous smoker. TECHNIQUE: Multiple sonographic images of the abdominal aorta are obtained. FINDINGS: EXAM MEASUREMENTS: Abdominal Aorta: Proximal: 2.3 x 2.2 cm Mid: Obscured by bowel gas Distal: 1.5 x 1.8 cm Bifurcation: Obscured by bowel gas EXPERIENCED TRUCK DRIVER NOTES: Limited exam due to patient body habitus and overlying bowel gas IMPRESSION: No visualized abdominal aortic aneurysm however there is limitation with nonvisualization of the mid abdominal aorta and bifurcation due to overlying bowel gas. MTDD
== END | disposition home or self-care (01) ==
LOC: RADUSWWP 06:44
PROVIDERS: ATTEND Family Medicine
DX: I71.40 Abdominal aortic aneurysm, without rupture, unspecified (principal); Z87.891 Personal history of nicotine dependence
CPT/HCPCS: 93979

== ENCOUNTER → 2022-04-14 | Outpatient (CLI) | payer MEDICARE | END | disposition home or self-care (01) | LOC: LABWHC1 07:11 | PROVIDERS: ATTEND Internal Medicine Endocrinology, Diabetes & Metabolism | DX: E11.65 Type 2 diabetes mellitus with hyperglycemia (principal) | CPT/HCPCS: 36415; 80053; 82043; 82570; 83036; 84443 ==

== ENCOUNTER → 2022-04-18 | Outpatient (CLI) | payer MEDICARE ==
[2022-04-18 16:27] LABS: African American GFR (CKD) 85.1 (60.0-200.0); Albumin 4.3 g/dL (3.8-4.9); Albumin/Globulin Ratio 2.15 (1.60-3.17); Anion Gap 11.5 mmol/L (10.00-18.00); BUN/Creat Ratio 16.25 Ratio (12.00-20.00); Blood Urea Nitrogen 16.9 mg/dL (9.0-27.0); Calcium 9.2 mg/dL (8.7-10.3); Carbon Dioxide 26.8 mmol/L (20.0-27.5); Non-African American GFR(CKD) 73.4 (60.0-200.0); Potassium 4.5 mmol/L (3.5-5.5); Total Bilirubin 0.3 mg/dL (0.30-1.20); Total Protein 6.3 g/dL (6.2-8.2)
== END | disposition home or self-care (01) ==
LOC: LABWHC1 08:07
PROVIDERS: ATTEND Internal Medicine Endocrinology, Diabetes & Metabolism
DX: E11.65 Type 2 diabetes mellitus with hyperglycemia (principal)
CPT/HCPCS: 36415; 80053

== ENCOUNTER → 2022-07-13 | Outpatient (CLI) | payer MEDICARE ==
[2022-07-13 12:11] LABS: ALT 20 U/L (10-49); AST 18 U/L (14-35); African American GFR (CKD) 89.2 (60.0-200.0); Albumin 4.2 g/dL (3.8-4.9); Albumin/Globulin Ratio 1.91 (1.60-3.17); Alkaline Phosphatase 53 U/L (41-126); Blood Urea Nitrogen 12.1 mg/dL (9.0-27.0); Carbon Dioxide 24.3 mmol/L (20.0-27.5); Chloride 105 mmol/L (96-109); Chol/HDL Ratio 3.12 Ratio; Globulin 2.2 g/dL (1.6-3.3); Glucose 121 mg/dL (70-110); Potassium 4.2 mmol/L (3.5-5.5); Sodium 141 mmol/L (135-145); Total Protein 6.4 g/dL (6.2-8.2)
[2022-07-13 14:07] LABS: Microalbumin Creatinine Ratio <30 mg/g Creat (0-30)
== END | disposition home or self-care (01) ==
LOC: LABWHC1 06:57
PROVIDERS: ATTEND Internal Medicine Endocrinology, Diabetes & Metabolism
DX: E11.65 Type 2 diabetes mellitus with hyperglycemia (principal)
CPT/HCPCS: 36415; 80053; 80061; 82043; 82570; 83036; 84443

== ENCOUNTER 2022-09-07 23:56 | Observation (INO) | payer MEDICARE ==
[2022-09-08] MEDS ORDERED: SODIUM CHLORIDE 0.9% 1,000 ML IV ONE (00:57)
--- NOTE | 2022-09-08 01:01 | ED ---
General Adult HPI - General Chief complaint: Dizziness Stated complaint: Dizziness,Cold Time Seen by Provider: 09/08/22 00:13 Source: patient Mode of arrival: wheelchair Limitations: no limitations - History of Present Illness Initial comments: This is a 67-year-old male with a past mental history including hypertension, diabetes and hyperlipidemia presents emergency department for lightheadedness. The patient stated that this is been present over the last 1 week but worsening today. The patient stated that he has a past history including vertigo and stated that he was always told to take his time with standing as this was with the environmental sampler recommended. The patient stated that today he was getting up to "the dog out when he had lightheadedness and room spinning sensation that he stated "maybe bounce off the barker." The patient was initially nauseous and stated he came to the emergency department for further evaluation. On my ev aluation currently, the patient denied any room spinning sensation but did state that he was mildly lightheaded. The patient denied any chest pain or shortness of breath. The patient was otherwise resting in bed comfortably. - Related Data Home Medications Medication Instructions Recorded Confirmed Fexofenadine HCl [Lori Allergy] 180 mg PO DAILY 09/23/17 04/20/22 Multivitamin [Men's Multi-Vitamin] 1 tab PO DAILY 09/23/17 04/20/22 Omeprazole [PriLOSEC] 40 mg PO DAILY 09/23/17 04/20/22 Simvastatin [Zocor] 40 mg PO HS 09/23/17 04/20/22 lisinopriL [Zestril] 2.5 mg PO DAILY 09/23/17 04/20/22 metFORMIN HCL [Glucophage] 1,000 mg PO BID 09/23/17 04/20/22 Aspirin EC [Ecotrin Low Dose] 81 mg PO DAILY 12/23/17 04/20/22 Calcium Carbonate/Vitamin D3 1 tab PO DAILY 01/03/20 04/20/22 [Calcium 500 mg-Vit D3 5 Mcg (200 Unit)] Escitalopram [Lexapro] 20 mg PO DAILY 01/08/21 04/20/22 Propranolol HCl 10 mg PO BID 01/08/21 04/20/22 glipiZIDE XL [Glucotrol Xl] 10 mg PO BID 01/08/21 04/20/22 Dapagliflozin Propanediol [Farxiga] 10 mg PO DAILY 04/17/21 04/20/22 Pioglitazone [Actos] 30 mg PO DAILY 04/17/21 04/20/22 Allergies Allergy/AdvReac Type Severity Reaction Status Date / Time Penicillins Allergy Severe Anaphylaxis Verified 09/07/22 23:59 Sulfa (Sulfonamide Allergy Rash/Hives Verified 09/07/22 23:59 Antibiotics) Review of Systems ROS Statement: Those systems with pertinent positive or pertinent negative responses have been documented in the HPI. ROS Other: All systems not noted in ROS Statement are negative. Past Medical History Past Medical History: Diabetes Mellitus, GERD/Reflux, Hyperlipidemia, Hypertension Additional Past Medical History / Comment(s): Type 2 DM, History of Any Multi-Drug Resistant Organisms: None Reported Past Surgical History: Bariatric Surgery, Cholecystectomy, Tonsillectomy Additional Past Surgical History / Comment(s): lap band placed 2012, Past Anesthesia/Blood Transfusion Reactions: No Reported Reaction Additional Past Anesthesia/Blood Transfusion Reaction / Comment(s): No blood transfusions to date Past Psychological History: No Psychological Hx Reported Smoking Status: Former smoker Past Alcohol Use History: None Reported Past Drug Use History: None Reported - Past Family History Mother Family Medical History: Congestive Heart Failure (CHF), Diabetes Mellitus Father Family Medical History: Coronary Artery Disease (CAD) General Exam Limitations: no limitations General appearance: alert, in no apparent distress, obese Head exam: Present: atraumatic, normocephalic, normal inspection Eye exam: Present: normal appearance, PERRL Pupils: Present: normal accommodation ENT exam: Present: normal exam, normal oropharynx, mucous membranes moist Neck exam: Present: normal inspection, full ROM Respiratory exam: Present: normal lung sounds bilaterally Cardiovascular Exam: Present: regular rate, normal rhythm, normal heart sounds GI/Abdominal exam: Present: soft, normal bowel sounds Extremities exam: Present: normal inspection, full ROM Back exam: Present: normal inspection, full ROM Neurological exam: Present: alert, oriented X3, CN II-XII intact Psychiatric exam: Present: normal affect, normal mood Skin exam: Present: warm, dry Course Vital Signs 09/07/22 09/08/22 23:59 02:49 Temperature 98.6 F Pulse Rate 60 62 Respiratory 18 16 Rate Blood Pressure 165/78 144/73 O2 Sat by Pulse 97 98 Oximetry EKG Findings - EKG Comments: EKG Findings:: An EKG was obtained and was interpreted by myself showing a rate of 59, SD interval of 257, QRS duration of 95 and QTC of 44. This EKG showed a sinus bradycardia with a first-degree AV block. There was however no ST segment elevation or depression noted. Medical Decision Making - Medical Decision Making Was pt. sent in by a medical professional or institution (, JOSE, DIRECTOR IT, urgent care, hospital, or fpc...) When possible be specific @ -No Did you speak to anyone other than the patient for history (EMS, parent, family, police, friend...)? What history was obtained from this source @ -No Did you review nursing and triage notes (agree or disagree)? Why? @ -I reviewed and agree with nursing and triage notes Were old charts reviewed (outside hosp., previous admission, EMS record, old EKG, old radiological studies, urgent care reports/EKG's, fpc records)? Report findings @ -No old charts were reviewed Differential Diagnosis (chest pain, altered mental status, abdominal pain women, abdominal pain men, vaginal bleeding, weakness, fever, dyspnea, syncope, headache, dizziness, GI bleed, back pain, seizure, CVA, palpatations, mental health)? @ -Vertigo, ACS, intracranial hemorrhage EKG interpreted by me (3pts min.). @ -As above X-rays interpreted by me (1pt min.). @ -Chest x-ray was obtained and was interpreted by myself showing no acute process. CT interpreted by me (1pt min.). @ -CTA of the head and neck was ordered at this time however results were pending. U/S interpreted by me (1pt. min.). @ -None done What testing was considered but not performed or refused? (CT, X-rays, U/S, labs)? Why? @ -None What meds were considered but not given or refused? Why? @ -None Did you discuss the management of the patient with other professionals (professionals i.e. JOSE Jackson, DIRECTOR IT, lab, RT, psych nurse, social staff worker, executive legal secretary, teacher, ground nuclear weapons assembly officer, rn field case manager)? Give summary @ -Yes, sound physicians, Dr. Dent was contacted regarding placement patient in observation. Was smoking cessation discussed for >3mins.? @ -No Was critical care preformed (if so, how long)? @ -No Were there social determinants of health that impacted care today? How? (Homelessness, low income, unemployed, alcoholism, drug addiction, transportation, low edu. Level, literacy, decrease access to med. care, nursing home, rehab)? @ -No Was there de-escalation of care discussed even if they declined (Discuss DNR or withdrawal of care, Hospice)? DNR status @ -No What co-morbidities impacted this encounter? (DM, HTN, Smoking, COPD, CAD, Cancer, CVA, ARF, Chemo, Hep., AIDS, mental health diagnosis, sleep apnea, morbid obesity)? @ -Hypertension, hyperlipidemia, diabetes Was patient admitted / discharged? Hospital course, mention meds given and route, prescriptions, significant lab abnormalities, going to OR and other pertinent info. @ -The patient was seen and evaluated emergency department. On physical exam, the patient was resting in bed without any acute distress. Vital signs on admission were stable. Laboratory workup as well as a chest x-ray and EKG were obtained. All initial laboratory workup was within normal limits. The patient received 1 L of normal saline fluid and reevaluation still had continued lightheadedness. The patient did report some minor blurry of vision over the last several days as well therefore a CTA of the head and neck was obtained at this time. Due to the patient's persistent lightheadedness in the setting of minor blurry vision, the patient will be placed in observation for evaluation by neurology. The patient was agreeable to this plan and was placed observation in stable condition. The CTA head and neck was still pending at this time however if significant abnormalities are noted, the patient's admission will be changed. Undiagnosed new problem with uncertain prognosis? @ -No Drug Therapy requiring intensive monitoring for toxicity (Heparin, Nitro, Insulin, Cardizem)? @ -No Were any procedures done? @ -No Diagnosis/symptom? @ -Persistent lightheadedness Acute, or Chronic, or Acute on Chronic? @ -Acute on chronic Uncomplicated (without systemic symptoms) or Complicated (systemic symptoms)? @ -Complicated Side effects of treatment? @ -No Exacerbation, Progression, or Severe Exacerbation? @ -No Poses a threat to life or bodily function? How? (Chest pain, [place], [place], pneumonia, PE, COPD, DKA, ARF, appy, cholecystitis, CVA, Diverticulitis, Homicidal, Suicidal, threat to staff... and all critical care pts) @ -Continued lightheadedness can cause multiple falls, causing worsening damage and possible . - Lab Data Result diagrams: 09/08/22 00:21 09/08/22 00:21 Lab Results 09/08/22 09/08/22 09/08/22 Range/Units 00:21 00:21 00:21 WBC 5.4 (3.8-10.6) k/uL RBC 4.28 L (4.30-5.90) m/uL Hgb 12.3 L (13.0-17.5) gm/dL Hct 37.2 L (39.0-53.0) % MCV 87.0 (80.0-100.0) fL MCH 28.7 (25.0-35.0) pg MCHC 32.9 (31.0-37.0) g/dL RDW 14.7 (11.5-15.5) % Plt Count 175 (150-450) k/uL MPV 8.4 Neutrophils % 62 % Lymphocytes % 23 % Monocytes % 7 % Eosinophils % 5 % Basophils % 1 % Neutrophils # 3.3 (1.3-7.7) k/uL Lymphocytes # 1.2 (1.0-4.8) k/uL Monocytes # 0.4 (0-1.0) k/uL Eosinophils # 0.3 (0-0.7) k/uL Basophils # 0.0 (0-0.2) k/uL PT 10.3 (9.0-12.0) sec INR 1.0 (<1.2) APTT 21.3 L (22.0-30.0) sec Sodium 137 (137-145) mmol/L Potassium 4.5 (3.5-5.1) mmol/L Chloride 106 (98-107) mmol/L Carbon Dioxide 22 (22-30) mmol/L Anion Gap 9 mmol/L BUN 19 (9-20) mg/dL Creatinine 0.83 (0.66-1.25) mg/dL Est GFR (CKD-EPI)AfAm >90 (>60 ml/min/1.73 sqM) Est GFR (CKD-EPI)NonAf 90 (>60 ml/min/1.73 sqM) Glucose 193 H (74-99) mg/dL Calcium 8.4 (8.4-10.2) mg/dL Magnesium 1.8 (1.6-2.3) mg/dL Total Bilirubin 0.3 (0.2-1.3) mg/dL AST 21 (17-59) U/L ALT 21 (4-49) U/L Alkaline Phosphatase 43 (38-126) U/L Troponin I (0.000-0.034) ng/mL NT-Pro-B Natriuret Pep pg/mL Total Protein 5.8 L (6.3-8.2) g/dL Albumin 3.4 L (3.5-5.0) g/dL 09/08/22 09/08/22 Range/Units 00:21 00:21 WBC (3.8-10.6) k/uL RBC (4.30-5.90) m/uL Hgb (13.0-17.5) gm/dL Hct (39.0-53.0) % MCV (80.0-100.0) fL MCH (25.0-35.0) pg MCHC (31.0-37.0) g/dL RDW (11.5-15.5) % Plt Count (150-450) k/uL MPV Neutrophils % % Lymphocytes % % Monocytes % % Eosinophils % % Basophils % % Neutrophils # (1.3-7.7) k/uL Lymphocytes # (1.0-4.8) k/uL Monocytes # (0-1.0) k/uL Eosinophils # (0-0.7) k/uL Basophils # (0-0.2) k/uL PT (9.0-12.0) sec INR (<1.2) APTT (22.0-30.0) sec Sodium (137-145) mmol/L Potassium (3.5-5.1) mmol/L Chloride (98-107) mmol/L Carbon Dioxide (22-30) mmol/L Anion Gap mmol/L BUN (9-20) mg/dL Creatinine (0.66-1.25) mg/dL Est GFR (CKD-EPI)AfAm (>60 ml/min/1.73 sqM) Est GFR (CKD-EPI)NonAf (>60 ml/min/1.73 sqM) Glucose (74-99) mg/dL Calcium (8.4-10.2) mg/dL Magnesium (1.6-2.3) mg/dL Total Bilirubin (0.2-1.3) mg/dL AST (17-59) U/L ALT (4-49) U/L Alkaline Phosphatase (38-126) U/L Troponin I <0.012 (0.000-0.034) ng/mL NT-Pro-B Natriuret Pep 87 pg/mL Total Protein (6.3-8.2) g/dL Albumin (3.5-5.0) g/dL Disposition Clinical Impression: Lightheaded Disposition: ADMITTED IP TO THIS HOSP Condition: Stable Is patient prescribed a controlled substance at d/c from ED?: No Referrals: Morgan Almeida MD [Primary Care Provider] - 1-2 days Time of Disposition: 04:15 Decision to Admit Reason: Admit from EC Decision Date: 09/08/22 Decision Time: 04:15
[2022-09-08 01:10] LABS: Basophils % (A) 1 %; Eosinophils # (A) 0.3 k/uL (0-0.7); Eosinophils % (A) 5 %; HCT 37.2 % (39.0-53.0); HGB 12.3 gm/dL (13.0-17.5); Lymphocytes # (A) 1.2 k/uL (1.0-4.8); Lymphocytes % (A) 23 %; MCH 28.7 pg (25.0-35.0); MCHC 32.9 g/dL (31.0-37.0); Mean Platelet Volume 8.4; Monocytes # (A) 0.4 k/uL (0-1.0); Monocytes % (A) 7 %; Neutrophils # (A) 3.3 k/uL (1.3-7.7); Neutrophils % (A) 62 %; Platelet Count 175 k/uL (150-450); RBC 4.28 m/uL (4.30-5.90); RDW 14.7 % (11.5-15.5); WBC 5.4 k/uL (3.8-10.6)
[2022-09-08 01:26] LABS: ALT 21 U/L (4-49); AST 21 U/L (17-59); African American GFR (CKD) >90 (>60 ml/min/1.73 sqM); Albumin 3.4 g/dL (3.5-5.0); Alkaline Phosphatase 43 U/L (38-126); Anion Gap 9 mmol/L; Blood Urea Nitrogen 19 mg/dL (9-20); Calcium 8.4 mg/dL (8.4-10.2); Carbon Dioxide 22 mmol/L (22-30); Chloride 106 mmol/L (98-107); Glucose 193 mg/dL (74-99); Magnesium 1.8 mg/dL (1.6-2.3); Non-African American GFR(CKD) 90 (>60 ml/min/1.73 sqM); Potassium 4.5 mmol/L (3.5-5.1); Sodium 137 mmol/L (137-145); Total Bilirubin 0.3 mg/dL (0.2-1.3); Total Protein 5.8 g/dL (6.3-8.2)
[2022-09-08 01:30] LABS: Prothrombin Time 10.3 sec (9.0-12.0)
[2022-09-08 01:38] LABS: Partial Thromboplastin Time 21.3 sec (22.0-30.0)
--- NOTE | 2022-09-08 03:49 | XR ---
EXAM: XR Chest, 2 Views CLINICAL HISTORY: ITS.REASON XR Reason: Lightheadedness TECHNIQUE: Frontal and lateral views of the chest. COMPARISON: No relevant prior studies available. FINDINGS: Lungs: No consolidation or mass. Pleural space: No effusion. Heart: Mild cardiomegaly. Bones/joints: No acute findings. IMPRESSION: No acute cardiopulmonary process.
[2022-09-08] MEDS ORDERED: NALOXONE 0.4 MG/ML 1 ML VIAL IV PRN (04:51)
[2022-09-08] MEDS ORDERED: DEXTROSE 50% SYRINGE 50 ML IVP PRN ×2 (05:10)
--- NOTE | 2022-09-08 05:11 | P.HPIM ---
History of Present Illness H&P Date: 09/08/22 Chief Complaint: dizziness 67 year old male with hypertension , DM , hyperlipidemia patient coming in due to worsening dizziness of 1 week duration, he has been told to stand up slowly due to vertigo in the past. he is experiencing worsening dizziness today with lightheadedness and feeling nauseous. he could not stand or walk due to fear of falling . he otherwise denies any other new focal neuro deficits. he denies any history of stroke, head injury , changes in vision or hearing , denies any focal neuro deficits. he denies any heart racing or palpitations. denies any chest pain or trouble breathing he denies any recent changes in his medications or overall health status , denies any recent travel or hospital stay , he denies any URI symptoms , fever, or chills. denies any diarrhea or abd pain. he denies smoking, illicit drugs or alcohol Review of Systems Pertinent positives as noted in HPI. All other systems were reviewed and are negative Past Medical History Past Medical History: Diabetes Mellitus, GERD/Reflux, Hyperlipidemia, Hypertension Additional Past Medical History / Comment(s): Type 2 DM, History of Any Multi-Drug Resistant Organisms: None Reported Past Surgical History: Bariatric Surgery, Cholecystectomy, Tonsillectomy Additional Past Surgical History / Comment(s): lap band placed 2012, Past Anesthesia/Blood Transfusion Reactions: No Reported Reaction Additional Past Anesthesia/Blood Transfusion Reaction / Comment(s): No blood transfusions to date Past Psychological History: No Psychological Hx Reported Smoking Status: Former smoker Past Alcohol Use History: None Reported Past Drug Use History: None Reported - Past Family History Mother Family Medical History: Congestive Heart Failure (CHF), Diabetes Mellitus Father Family Medical History: Coronary Artery Disease (CAD) Medications and Allergies Home Medications Medication Instructions Recorded Confirmed Type Fexofenadine HCl [Lori Allergy] 180 mg PO DAILY 09/23/17 04/20/22 History Multivitamin [Men's Multi-Vitamin] 1 tab PO DAILY 09/23/17 04/20/22 History Omeprazole [PriLOSEC] 40 mg PO DAILY 09/23/17 04/20/22 History Simvastatin [Zocor] 40 mg PO HS 09/23/17 04/20/22 History lisinopriL [Zestril] 2.5 mg PO DAILY 09/23/17 04/20/22 History metFORMIN HCL [Glucophage] 1,000 mg PO BID 09/23/17 04/20/22 History Aspirin EC [Ecotrin Low Dose] 81 mg PO DAILY 12/23/17 04/20/22 History Calcium Carbonate/Vitamin D3 1 tab PO DAILY 01/03/20 04/20/22 History [Calcium 500 mg-Vit D3 5 Mcg (200 Unit)] Escitalopram [Lexapro] 20 mg PO DAILY 01/08/21 04/20/22 History Propranolol HCl 10 mg PO BID 01/08/21 04/20/22 History glipiZIDE XL [Glucotrol Xl] 10 mg PO BID 01/08/21 04/20/22 History Dapagliflozin Propanediol [Farxiga] 10 mg PO DAILY 04/17/21 04/20/22 History Pioglitazone [Actos] 30 mg PO DAILY 04/17/21 04/20/22 History Allergies Allergy/AdvReac Type Severity Reaction Status Date / Time Penicillins Allergy Severe Anaphylaxis Verified 09/07/22 23:59 Sulfa (Sulfonamide Allergy Rash/Hives Verified 09/07/22 23:59 Antibiotics) Physical Exam Vitals: Vital Signs Temp Pulse Resp BP Pulse Ox 09/08/22 02:49 62 16 144/73 98 09/07/22 23:59 98.6 F 60 18 165/78 97 Intake and Output 09/07/22 09/07/22 09/08/22 14:59 22:59 06:59 Other: Weight 105.233 kg Constitutional: No acute distress, conversant, pleasant Eyes: Anicteric sclerae, moist conjunctiva, Pupils equal round reactive to light ENMT: NC/AT Oropharynx clear, no erythema, or exudates Neck: Supple, no masses, or JVD No carotid bruits No thyromegaly Lungs: Clear to auscultation Clear to percussion Normal respiratory effort, no accessory muscle use Cardiovascular: Heart regular in rate and rhythm, No murmurs, gallops, or rubs No peripheral edema Abdominal: Soft Nontender, no guarding, rebound or rigidity Abdomen moving with respiration Normoactive bowel sounds No hepatomegaly, No splenomegaly No palpable mass No abdominal wall hernia noted Skin: Normal temperature, tone, texture, turgor No induration No subcutaneous nodules No rash, lesions No ulcers Extremities: No digital cyanosis No clubbing Pedal pulses intact and symmetrical Radial pulses intact and symmetrical No calf tenderness Psychiatric: Alert and oriented to person, place and time Appropriate affect fair judgement Neuro Muscles Strength 5/5 in all 4 extremities Sensation to light touch grossly present throughout Cranial nerves II-XII grossly intact intentional tremor finger nose exam and heel alanis exam both intact Lymphatics: no palpable cervical or supraclavicular lymph nodes Results CBC & Chem 7: 09/08/22 00:21 09/08/22 00:21 Labs: Abnormal Lab Results - Last 24 Hours (Table) 09/08/22 09/08/22 09/08/22 Range/Units 00:21 00:21 00:21 RBC 4.28 L (4.30-5.90) m/uL Hgb 12.3 L (13.0-17.5) gm/dL Hct 37.2 L (39.0-53.0) % APTT 21.3 L (22.0-30.0) sec Glucose 193 H (74-99) mg/dL Total Protein 5.8 L (6.3-8.2) g/dL Albumin 3.4 L (3.5-5.0) g/dL Assessment and Plan Assessment: 67 year old male with hypertension , DM , presented due to dizziness, I discussed the case with ED doc , and I accepted the admission for neurologic workup with anticipated length of stay < 2 midnights vertigo rule out intracerebral pathology CTA head and neck pending neuro checks fall precautions IVF hydration with normal saline neurology consult PT /OT patient monitor EKG sinus bradycardia otherwise no acute ST changes CXR no acute pathology orthostatic vitals DM insulin sliding scale hypertension resume home cardiac meds lisinopril and inderal blood work reviewed , WBC 5.4 Hgb 12.3 unremarkable renal function BUN 19 cr 0.83 , Na 137, K 4.5 unremarkable full code DVT PPX mechanical
--- NOTE | 2022-09-08 07:57 | CT ---
EXAMINATION TYPE: CT angio head neck DATE OF EXAM: 09/08/2022 COMPARISON: None HISTORY: 67-year-old male persistent lightheadedness TECHNIQUE: Contiguous axial scanning of the head and neck performed with IV Contrast, patient injecte d with 65 mL of Isovue 370. Coronal/sagittal reconstructions performed. 3-D reconstructions generated on a dedicated independent workstation. CT DLP: 823.6 mGycm Automated exposure control for dose reduction was used. FINDINGS: NECK: Bovine configuration to the aortic arch as well as variant direct takeoff of the left vertebral arter y directly from the aortic arch. The vertebral arteries are codominant and patent throughout their course. The bilateral common and internal carotid arteries are widely patent. NASCET criteria was utilized. HEAD: The vertebral and basilar arteries as well as the remainder of the posterior circulation is patent. S cattered mild atherosclerotic calcification throughout bilateral carotid siphons. Mild atheroscleroti c narrowing at the supraclinoid right ICA. Possible tiny 2 mm saccular aneurysm projecting posteriorly and superiorly from the supraclinoid righ t ICA, axial image 161. Slightly hypoplastic A1 segment right anterior cerebral artery. Remainder of the anterior circulation otherwise patent. No other aneurysmal changes seen. IMPRESSION: NECK: 1. 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 2. WIDELY PATENT VERTEBRAL AN CAROTID ARTERIES IN THE NECK. HEAD: 3. MILD ATHEROSCLEROTIC CHANGES THROUGHOUT THE BILATERAL CAROTID SIPHONS WITH MILD FOCAL NARROWING IRVIN PRACLINOID RIGHT ICA. 4. JUST DISTALLY WITHIN THE SUPRACLINOID RIGHT ICA, THERE IS SUSPICION FOR A TINY 2 MM SACCULAR ANEUR YSM PROJECTING SUPERIORLY AND POSTERIORLY. CONSIDER 6 MONTH FOLLOW-UP MR ANGIOGRAPHY [facility] [place] TO REASSESS. 5. NO LARGE VESSEL INTRACRANIAL ARTERIAL OCCLUSION, OTHERWISE ANY SIGNIFICANT STENOSIS, OR OTHER ANEU RYSMAL CHANGE IS SEEN.
[2022-09-08 08:47] LABS: Glucose,Whole Blood 96 mg/dL (70-110)
[2022-09-08] MEDS: INSULIN ASPART (NovoLOG) 100 UNIT/ML VIAL SQ SCH ×4 (08:51→20:57)
[2022-09-08] MEDS: ASPIRIN 81 MG PO SCH (09:08)
[2022-09-08] MEDS: PANTOPRAZOLE 40 MG TABLET PO SCH (09:08)
[2022-09-08] MEDS: ESCITALOPRAM 20 MG TAB PO SCH (09:08)
[2022-09-08] MEDS: PROPRANOLOL 10 MG TAB PO SCH ×2 (09:11→20:08)
[2022-09-08 12:07] LABS: Glucose,Whole Blood 102 mg/dL (70-110)
[2022-09-08 17:27] VITALS: RESP 16
[2022-09-08 17:33] LABS: Glucose,Whole Blood 134 mg/dL (70-110)
[2022-09-08] MEDS ORDERED: MECLIZINE 25 MG TAB PO PRN (18:15)
[2022-09-08 20:22] LABS: Glucose,Whole Blood 216 mg/dL (70-110)
[2022-09-08] MEDS ORDERED: ATORVASTATIN 20 MG TAB PO SCH (21:00)
[2022-09-09 06:32] LABS: Glucose,Whole Blood 136 mg/dL (70-110)
[2022-09-09] MEDS: INSULIN ASPART (NovoLOG) 100 UNIT/ML VIAL SQ SCH (06:37)
[2022-09-09] MEDS: PANTOPRAZOLE 40 MG TABLET PO SCH (06:42)
[2022-09-09 07:34] VITALS: BP 145/81; PULSE 68; TEMP 98.2
[2022-09-09] MEDS: ESCITALOPRAM 20 MG TAB PO SCH (08:29)
[2022-09-09] MEDS: ASPIRIN 81 MG PO SCH (08:29)
[2022-09-09] MEDS: PROPRANOLOL 10 MG TAB PO SCH (08:29)
--- NOTE | 2022-09-09 09:11 | P.CNNES ---
History of Present Illness Consult date: 09/08/22 Requesting physician: Willy Scott Reason for Consult: Persistent lightheadedness History of Present Illness: Patient is a 67-year-old male came to the hospital yesterday at 11:56 PM, for evaluation of dizziness going on for last couple weeks. Yesterday it was very bad. He got up to go to the bathroom and everything was spinning. The dizziness can happen with body position changes, or even when he is laying in t he bed, doing nothing, and the head start spinning. Patient admits that rolling over to the left makes him dizzy. Sometimes just laying there on the back, doing nothing can make him dizzy as well. Patient denies any recent sinus infection. Patient states about 5 years ago he had the same episode of dizziness in the room was spinning with vertigo. He came to the ER on 12/23/2017 to [facility], was given Antivert, and the symptoms resolved in about 1-1-1/2 days. Patient states that he has history of 2 left ear surgeries about 10 years ago. Both surgeries were a few years apart. They were performed because of ear infection, as apparently the infection was almost "eating away the bone". He denies any tinnitus. Vital signs on arrival blood pressure 165/78, pulse rate 60 temperature 98.6. Blood test shows normal WBC hemoglobin 12.3, platelets are normal. PT/PTT normal, Chem-20 normal. Troponin negative. B12 374, folate 16.4. EKG shows sinus bradycardia with first-degree AV block. Chest x-ray revealed no acute cardiopulmonary process. CTA of the neck revealed anatomical variant but widely patent vertebral and carotid arteries in the neck. CTA of the head revealed mild atherosclerotic changes throughout the bilateral carotid siphons with mild focal narrowing supraclinoid right ICA. Just distally within the supraclinoid right ICA, there is a suspicion for a tiny 2 mm saccular aneurysm projecting superiorly and posteriorly. Consider six-month follow-up MRI angiography of [facility] [place] to reassess. No large vessel intracranial arterial occlusion, otherwise any significant stenosis or other aneurysmal changes. Patient states that his symptoms have resolved. He feels fine. Patient denies any tobacco use or any alcohol. He does have hypertension and diabetes for about 15 years. Review of Systems Had diarrhea last week, lasted 1 day Constitutional: Denies chills, Denies fever Eyes: denies blurred vision, denies diplopia, denies pain Ears: left: decreased hearing, deny: ear discharge, earache, tinnitus Ears, nose, mouth and throat: Reports headache, Denies sore throat Cardiovascular: Reports shortness of breath, Denies chest pain Respiratory: Denies cough, Denies excessive sputum Gastrointestinal: Reports diarrhea, Reports nausea, Denies abdominal pain, Denies vomiting Genitourinary: Denies dysuria, Denies genital pain, Denies urinary frequency Musculoskeletal: Reports low back pain, Denies myalgias, Denies neck pain Integumentary: Denies pruritus, Denies rash Neurological: Reports as per HPI Psychiatric: Reports depression, Denies anxiety Endocrine: Reports fatigue, Denies weight change Hematologic/Lymphatic: Reports easy bruising, Denies easy bleeding Past Medical History Past Medical History: Diabetes Mellitus, GERD/Reflux, Hyperlipidemia, Hypertension Additional Past Medical History / Comment(s): Type 2 DM, History of Any Multi-Drug Resistant Organisms: None Reported Past Surgical History: Bariatric Surgery, Cholecystectomy, Tonsillectomy Additional Past Surgical History / Comment(s): lap band placed 2012, Past Anesthesia/Blood Transfusion Reactions: No Reported Reaction Additional Past Anesthesia/Blood Transfusion Reaction / Comment(s): No blood tra nsfusions to date Smoking Status: Never smoker - Past Family History Mother Family Medical History: Congestive Heart Failure (CHF), Diabetes Mellitus Father Family Medical History: Coronary Artery Disease (CAD) Medications and Allergies Home Medications Medication Instructions Recorded Confirmed Type Fexofenadine HCl [Lori Allergy] 180 mg PO DAILY 09/23/17 09/08/22 History Multivitamin [Men's Multi-Vitamin] 2 tab PO DAILY 09/23/17 09/08/22 History Omeprazole [PriLOSEC] 40 mg PO DAILY 09/23/17 09/08/22 History Simvastatin [Zocor] 40 mg PO HS 09/23/17 09/08/22 History lisinopriL [Zestril] 2.5 mg PO DAILY 09/23/17 09/08/22 History metFORMIN HCL [Glucophage] 1,000 mg PO BID 09/23/17 09/08/22 History Aspirin EC [Ecotrin Low Dose] 81 mg PO DAILY 12/23/17 09/08/22 History Escitalopram [Lexapro] 20 mg PO DAILY 01/08/21 09/08/22 History Propranolol HCl 10 mg PO DAILY 01/08/21 09/08/22 History Dapagliflozin Propanediol [Farxiga] 10 mg PO DAILY 04/17/21 09/08/22 History Pioglitazone [Actos] 30 mg PO DAILY 04/17/21 09/08/22 History Dextrose Chew [Glucose Chew Tab] 16 gm PO ONCE PRN 09/08/22 09/08/22 History Dulaglutide [Trulicity] 4.5 mg SQ IRVIN 09/08/22 09/08/22 History Ofloxacin 0.3% Otic Soln [Floxin 5 drops LEFT EAR Q3D 09/08/22 09/08/22 History 0.3% Otic Soln] Allergies Allergy/AdvReac Type Severity Reaction Status Date / Time Penicillins Allergy Severe Anaphylaxis Verified 09/08/22 08:19 Sulfa (Sulfonamide Allergy Rash/Hives Verified 09/08/22 08:19 Antibiotics) Physical Examination - Vital Signs Vital Signs: Vital Signs Temp Pulse Pulse Resp BP BP Pulse Ox 09/08/22 17:26 97.7 F 58 L 16 131/81 98 09/08/22 14:00 58 L 18 116/72 96 09/08/22 02:49 62 16 144/73 98 09/07/22 23:59 98.6 F 60 18 165/78 97 Intake and Output 09/08/22 09/08/22 09/08/22 06:59 14:59 22:59 Other: Weight 105.233 kg 105.233 kg Patient is an elderly male, in no acute distress. Patient is alert awake oriented to time place and person. Speech and language functions are normal. Patient can name and repeat very well. No aphasia or dysarthria. Attention, concentration and fund of knowledge is adequate. On cranial nerve examination, pupils are equal, round and reacting to light, visual carter are full on confrontation, with no neglect on double simultaneous stimulation. Extraocular muscles are intact with no nystagmus. Face is symmetric, tongue protrudes to the midline. Palatal elevation and sensation normal, hearing is significantly decreased for finger rubbing bilaterally, left much worse than right and shoulder shrug normal, facial sensation normal. On muscle strength testing, there is no pronator drift and the strength is normal in arms and legs distally and proximally. Deep tendon reflexes are symmetric biceps 1, brachioradialis 1, knees 2, ankles 1 and plantars are downgoing bilaterally. Sensory to touch is equal with no neglect on double simultaneous stimulation. Cerebellar function showed no ataxia for [id number] testing. Patient is shaky for [id number] testing bilaterally. No dysdiadochokinesia. No ataxia for [id number] testing on either side. Tone and bulk of muscles normal. Gait deferred. On general examination, there is no carotid bruit or murmur, S1-S2 audible. Chest is clear on consultation. Abdomen is soft nontender. No organomegaly, bowel sounds present. Peripheral pulses are present. No edema. Results - Laboratory Findings CBC and BMP: 09/08/22 00:21 09/08/22 00:21 Abnormal Lab Findings: Abnormal Labs 09/08/22 09/08/22 09/08/22 00:21 00:21 00:21 RBC 4.28 L Hgb 12.3 L Hct 37.2 L APTT 21.3 L Glucose 193 H POC Glucose (mg/dL) Total Protein 5.8 L Albumin 3.4 L 09/08/22 17:30 RBC Hgb Hct APTT Glucose POC Glucose (mg/dL) 134 H Total Protein Albumin Assessment and Plan Assessment: * Vertigo, likely due to peripheral vestibular dysfunction. Patient has history of similar vertigo on 12/23/2017, that resolved in about 1.5 days. * History of left ear surgery for infection 2, about 10 years ago. * Possible tiny 2 mm saccular aneurysm projecting posteriorly and superiorly from the supraclinoid right ICA. * Hypertension * diabetes Plan: * Start Antivert 25 mg 3 times a day when necessary for dizziness. * Patient may benefit from ENT follow-up as an outpatient to check for peripheral vestibular functions. * B12 level checked, 374, folate 16.4. We will start oral B12. * CTA of head and neck revealed incidental very tiny cerebral aneurysm. Recommend patient follow up with neuro intervention as an outpatient. No urgency at this time. * Patient states that his dizziness has resolved, therefore clear for discharge. Thank you for the consult.
== END 2022-09-09 11:03 | disposition home or self-care (01) ==
LOC: EC 23:56 → 6NMEDSUR 09-08 04:51
PROVIDERS: ADMIT Internal Medicine; ATTEND Internal Medicine
DX: R42 Dizziness and giddiness (principal); E11.9 Type 2 diabetes mellitus without complications; E78.5 Hyperlipidemia, unspecified; K21.9 Gastro-esophageal reflux disease without esophagitis; E66.9 Obesity, unspecified; I11.9 Hypertensive heart disease without heart failure; I44.0 Atrioventricular block, first degree; R00.1 Bradycardia, unspecified; I65.23 Occlusion and stenosis of bilateral carotid arteries; Z79.899 Other long term (current) drug therapy; Z79.84 Long term (current) use of oral hypoglycemic drugs; Z79.82 Long term (current) use of aspirin; Z88.0 Allergy status to penicillin; Z88.2 Allergy status to sulfonamides; Z98.84 Bariatric surgery status; Z90.49 Acquired absence of other specified parts of digestive tract; Z83.3 Family history of diabetes mellitus; Z82.49 Family history of ischemic heart disease and other diseases of the circulatory system; Z68.39 Body mass index [BMI] 39.0-39.9, adult
CPT/HCPCS: 96360; 99285; 36415; 93005; 83880; 80053; 82607; 82746; 83735; 84484; 85025; 85610; 85730; 83036; 71046; 70496; 70498; G0378 ×2; Q9967

== ENCOUNTER → 2023-08-27 | Outpatient (CLI) | payer MEDICARE ==
[2023-08-27 11:29] LABS: ALT 23 U/L (10-49); AST 23 U/L (14-35); Albumin 4.1 g/dL (3.8-4.9); Albumin/Globulin Ratio 2.05 Ratio (1.60-3.17); Alkaline Phosphatase 49 U/L (41-126); BUN/Creat Ratio 18.67 Ratio (12.00-20.00); Blood Urea Nitrogen 16.8 mg/dL (9.0-27.0); Calcium 8.8 mg/dL (8.7-10.3); Carbon Dioxide 24.7 mmol/L (21.6-31.8); Chloride 104 mmol/L (96-109); Glucose 78 mg/dL (70-110); LDL Cholesterol,Calculated 72.6 mg/dL (0.0-131.0); Potassium 4.2 mmol/L (3.5-5.5); Sodium 140 mmol/L (135-145); Total Bilirubin 0.4 mg/dL (0.3-1.2); Total Protein 6.1 g/dL (6.2-8.2)
[2023-08-27 22:53] LABS: Microalbumin Creatinine Ratio <11 mg/g Cr (0-30)
== END | disposition home or self-care (01) ==
LOC: LABWHC1 06:40
PROVIDERS: ATTEND Internal Medicine Endocrinology, Diabetes & Metabolism
DX: E11.65 Type 2 diabetes mellitus with hyperglycemia (principal)
CPT/HCPCS: 36415; 80053; 80061; 82043; 82570; 83036; 84443

== ENCOUNTER → 2024-02-01 | Outpatient (CLI) | payer MEDICARE ==
--- NOTE | 2024-02-01 11:29 | US ---
EXAMINATION TYPE: US scrotum with doppler. DATE OF EXAM: 02/01/2024 COMPARISON: NONE CLINICAL INDICATION: Male, 68 years old with history of N50.811 PAIN IN RIGHT TESTICLE; Right testicu lar pain x couple weeks TECHNIQUE: Grayscale, color Doppler and spectral Doppler imaging of the scrotum. FINDINGS: EXAM MEASUREMENTS: TESTICLES: Right Testicle: 3.9 x 2.2 x 2.4 cm Left Testicle: 4.1 x 2.7 x 2.6 cm EPIDIDYMIS HEAD: Right Epididymis: 1.2 cm, 0.8cm cyst Left Epididymis: 1.6 cm, 0.7cm cyst Doppler performed to assess for testicular vascularity; good bilateral color flow and waveforms are s een. There is no evidence of testicular torsion. No suspicious hypervascularity noted Presence of hydroceles: right - 2.3cm, left 2.1cm Presence of varicoceles: no IMPRESSION: Bilateral epididymal cysts [facility], , 02/01/2024 11:27 AM
== END | disposition home or self-care (01) ==
LOC: RADUSWWP 06:59
PROVIDERS: ATTEND Internal Medicine
DX: N50.3 Cyst of epididymis (principal)
CPT/HCPCS: 76870; 93975

== ENCOUNTER → 2024-06-15 | Outpatient (CLI) | payer MEDICARE ==
[2024-06-15 11:02] LABS: BUN/Creat Ratio 20.18 Ratio (12.00-20.00); Blood Urea Nitrogen 22.2 mg/dL (9.0-27.0); Chloride 105 mmol/L (96-109); Glucose 108 mg/dL (70-110); Potassium 4.4 mmol/L (3.5-5.5); Sodium 140 mmol/L (135-145)
== END | disposition home or self-care (01) ==
LOC: LABWHC1 06:43
PROVIDERS: ATTEND Family Medicine
DX: E11.9 Type 2 diabetes mellitus without complications (principal)
CPT/HCPCS: 36415; 80048

== ENCOUNTER → 2024-06-19 | Outpatient (CLI) | payer MEDICARE ==
--- NOTE | 2024-06-19 08:42 | MR ---
EXAMINATION TYPE: MR angio head wo con DATE OF EXAM: 06/19/2024 COMPARISON: CTA head September 08, 2022 HISTORY: Saccular aneurysm, F/U to abnormal CTA head. TECHNIQUE: Time of flight images focusing on the [place] [facility] [place] were performed without contrast.. 2-D and 3-D postprocessing imaging is performed. FINDINGS: Vertebral arteries are codominant and patent to the basilar junction. There are small calib er but patent bilateral posterior communicating arteries. No large vessel occlusion or aneurysm in th e posterior circulation. There is tiny 1 mm outpouching along the lateral aspect of the distal right internal carotid artery a xial image 65. Possible additional 1 mm outpouching versus tortuosity of vessel distal to this axial image 76 is redemonstrated. Patent anterior communicating artery is seen. No large vessel occlusion o r aneurysm in the anterior circulation is identified. IMPRESSION: Tiny irregularities or 1 mm outpouchings along the distal right internal carotid artery f avor origin of tiny branch vessels, aneurysm not excluded. No significant change from 2022 CT. [facility], , 06/19/2024 8:39 AM
== END | disposition home or self-care (01) ==
LOC: RADMRIMAIN 07:54
PROVIDERS: ATTEND Family Medicine
DX: I67.1 Cerebral aneurysm, nonruptured (principal)
CPT/HCPCS: 70544